=== PATIENT | male | born 1960 | race Caucasian/White ===

== ENCOUNTER 2019-04-28 15:02 | Inpatient (IN) ==
[2019-04-28] MEDS ORDERED: ONDANSETRON INJ 2 MG/ML 2 ML VIAL IV STA (15:22)
[2019-04-28] MEDS ORDERED: SODIUM CHLORIDE 0.9% 500 ML IV ONE (15:22)
--- NOTE | 2019-04-28 15:42 | Emergency Department Note ---
Entered by Roz Mcclendon acting as a scribe for Cornelio Jose DO History of Present Illness General Chief complaint: Leg Injury/Pain Stated complaint: SEVERE PAIN FROM HIP DOWN, LEG PROBLEM Time Seen by Provider: 04/28/19 15:12 Source: patient History of Present Illness Onset (ago): day(s) 2 Location: lower extremity and left Pain Consistency: + other (worsening ) Maximum Pain Intensity: 10 Exacerbated By: + movement Associated symptoms: + other (positive left leg swelling; positive left leg redness); no fever/chills The patient is a 58 year old male who presents to the Emergency Room with complaints of worsening left leg pain that began 2 days prior to arrival. The patient reports that he has redness and swelling over this area. The patient states that his pain is exacerbated with movement. He reports chills several days ago, but denies fevers. The patient states that on 03/21, 38 days ago, the patient had a bypass which removed an artery from his wrist and placed in his left groin. The patient states that he is on Plavix currently. 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 The patient reports that he is a smoker, but denies drinking alcohol. Home Medications Home Medications Medication Instructions Recorded Confirmed Type clopidogrel 75 mg PO DAILY 04/28/19 04/28/19 History insulin aspart U-100 [Novolog 10 unit SUBCUT TIDM 04/28/19 04/28/19 History Flexpen U-100 Insulin] insulin glargine [Lantus Solostar 45 unit SUBCUT BID 04/28/19 04/28/19 History U-100 Insulin] lisinopril 0 mg PO DAILY 04/28/19 04/28/19 History metformin 0 mg PO BID 04/28/19 04/28/19 History omeprazole 0 mg PO DAILY 04/28/19 04/28/19 History Allergies Allergy/AdvReac Type Severity Reaction Status Date / Time gabapentin Allergy Unknown Unverified 04/28/19 16:55 tramadol Allergy Unknown Unverified 04/28/19 16:55 Past Med/Surg History Medical History Diabetes GERD (gastroesophageal reflux disease) Hypertension Peripheral vascular disease Social History Preferred Language: [place] Citizen Communication Ability: Effective Box Liner Required: No Beliefs That Will Affect Care: None Current Living Situation: Alone Feels Safe at Home: Yes Safety Concerns: Feels Safe At This Time Smoking Status: Current every day smoker Tobacco Type: cigarettes ; Cigarettes Per Day: 5-10 ; Hx Alcohol Use: No Hx Substance Use: No Review of Systems See HPI for pertinent positives & negatives. and A total of 10 systems reviewed and were otherwise negative Physical Exam Vital Signs Vital Signs - 24 hr 04/28/19 15:06 04/28/19 17:53 04/28/19 17:54 Temperature 36.9 C Temperature Source Oral Pulse Rate 115 H 102 H 103 H Pulse Rate from SpO2 Sensor Respiratory Rate 18 26 H 14 Respiratory Effort / Characteristics Non-Labored Spontaneous Respiratory Depth Normal Respiratory Pattern Regular Blood Pressure 130/84 133/92 Blood Pressure Mean 99 98 Blood Pressure Position Sitting Pulse Oximetry 98 Oxygen Delivery Method Room Air Sepsis Recent Fever Within 48 Hours No Sepsis New/Unexplained Change in Mental Status No Sepsis Action Taken by Nursing No Action Required 04/28/19 18:00 04/28/19 18:01 04/28/19 18:10 Temperature Temperature Source Pulse Rate 104 H 106 H 103 H Pulse Rate from SpO2 Sensor 104 H 106 H 103 H Respiratory Rate 12 26 H 22 Respiratory Effort / Characteristics Respiratory Depth Respiratory Pattern Blood Pressure 128/87 Blood Pressure Mean 100 Blood Pressure Position Pulse Oximetry 98 96 93 Oxygen Delivery Method Sepsis Recent Fever Within 48 Hours Sepsis New/Unexplained Change in Mental Status Sepsis Action Taken by Nursing 04/28/19 18:20 04/28/19 18:30 04/28/19 18:31 Temperature Temperature Source Pulse Rate 104 H 104 H 102 H Pulse Rate from SpO2 Sensor 104 H 105 H 101 H Respiratory Rate 21 18 19 Respiratory Effort / Characteristics Respiratory Depth Respiratory Pattern Blood Pressure 141/99 H Blood Pressure Mean 119 Blood Pressure Position Pulse Oximetry 97 96 96 Oxygen Delivery Method Sepsis Recent Fever Within 48 Hours Sepsis New/Unexplained Change in Mental Status Sepsis Action Taken by Nursing 04/28/19 18:40 Temperature Temperature Source Pulse Rate 101 H Pulse Rate from SpO2 Sensor 101 H Respiratory Rate 18 Respiratory Effort / Characteristics Respiratory Depth Respiratory Pattern Blood Pressure Blood Pressure Mean Blood Pressure Position Pulse Oximetry 96 Oxygen Delivery Method Sepsis Recent Fever Within 48 Hours Sepsis New/Unexplained Change in Mental Status Sepsis Action Taken by Nursing GENERAL: The patient is awake and alert. He is somewhat anxious appearing and appears to be in significant pain. EYES: The conjunctivae are clear. The pupils are round and reactive. EARS, NOSE, MOUTH AND THROAT: The nose is without any evidence of any deformity. Mucous membranes are moist. Tongue is midline. NECK: The neck is nontender and supple. RESPIRATORY: Normal respiratory effort is noted there is no evidence of wheezing rhonchi or rales CARDIOVASCULAR: Regular rate and rhythm noted there no murmurs rubs or gallops normal S1 normal S2. GASTROINTESTINAL: The abdomen is soft. Abdomen is nontender. MUSCULOSKELETAL/EXTREMITIES: There is no evidence of gross deformity full range of motion is noted in the hips and shoulders. SKIN: The postoperative sites on the left lower extremity are well-healing. There is no dehiscence erythema or drainage noted. Pulses are palpable in both feet. There is significant erythema in the left thigh. There is induration and tenderness over the left lateral thigh. NEUROLOGIC: Patient is awake alert and oriented x3. Course Course 1519: Past medical records reviewed. The patient was evaluated in room B7. A complete history and physical exam was performed. 1807: I discussed the case with Dr. [facility] Hospitalist who accepts the patient for further evaluation. Administered Medications Clopidogrel Bisulfate (Plavix) 75 mg PO DAILY [facility] Stop: 05/29/19 08:59 Last Admin: 04/29/19 08:08 Dose: 75 mg Documented by: [id number] Piperacillin Sod/Tazobactam (Sod 3.375 gm/ Dextrose) 115 mls @ 28.75 mls/hr IV Q8H RAUL; Protocol Stop: 05/05/19 01:59 Last Admin: 04/29/19 09:18 Dose: 28.8 mls/hr Documented by: [id number] Infusion: 04/29/19 06:10 Dose: 0 mls/hr Documented by: [id number] Admin: 04/29/19 02:02 Dose: 28.8 mls/hr Documented by: [id number] Insulin Aspart (Novolog Flexpen) 0 units SC ACHS RAUL Stop: 05/28/19 20:59 Last Admin: 04/29/19 08:02 Dose: 8 units Documented by: [id number] Cosigned by: [id number] Admin: 04/28/19 21:06 Dose: 9 units Documented by: [id number] Cosigned by: [id number] Insulin Glargine (Lantus Solostar Pen) 45 units SQ BID [facility] Stop: 05/28/19 20:59 Last Admin: 04/29/19 08:00 Dose: 45 units Documented by: [id number] Cosigned by: [id number] Admin: 04/28/19 21:04 Dose: 45 units Documented by: [id number] Cosigned by: [id number] Ioversol (Optiray 320 100ml) 93 ml IV ONCE PRN PRN Reason: Interaction Checking Stop: 05/02/19 19:30 Last Admin: 04/28/19 19:32 Dose: 93 ml Documented by: [id number] Lisinopril (Zestril) 2.5 mg PO DAILY [facility] Stop: 05/29/19 08:59 Last Admin: 04/29/19 08:09 Dose: 2.5 mg Documented by: [id number] Miscellaneous (Remove Nicoderm Patch) 1 ea N/A DAILY@0859 [facility] Stop: 05/29/19 08:58 Last Admin: 04/29/19 08:07 Dose: Not Given Documented by: [id number] Nicotine (Nicoderm Cq) 14 mg TD QAM [facility] Stop: 05/28/19 19:14 Last Admin: 04/29/19 08:30 Dose: Not Given Documented by: [id number] Admin: 04/28/19 21:04 Dose: 14 mg Documented by: [id number] Oxycodone/Acetaminophen (Percocet 10/325mg) 1 tab PO Q6H PRN PRN Reason: Pain Stop: 05/12/19 20:08 Last Admin: 04/29/19 09:17 Dose: 1 tab Documented by: [id number] Admin: 04/29/19 03:16 Dose: 1 tab Documented by: [id number] Admin: 04/28/19 21:03 Dose: 1 tab Documented by: [id number] Pantoprazole Sodium (Protonix) 40 mg PO DAILY [facility] Stop: 05/29/19 08:59 Last Admin: 04/29/19 08:09 Dose: 40 mg Documented by: [id number] Discontinued Medications Fentanyl Citrate (Fentanyl Citrate) 50 mcg IV Q15M PRN PRN Reason: Pain Stop: 05/12/19 15:21 Last Admin: 04/28/19 18:07 Dose: 50 mcg Documented by: [id number] Admin: 04/28/19 16:13 Dose: 50 mcg Documented by: [id number] Sodium Chloride (Nss) 500 mls @ 999 mls/hr IV .Q31M ONE Stop: 04/28/19 15:52 Last Infusion: 04/28/19 16:49 Dose: 0 mls/hr Documented by: [id number] Admin: 04/28/19 16:13 Dose: 999 mls/hr Documented by: [id number] Ceftriaxone Sodium (Rocephin) 1,000 mg in 50 mls @ 100 mls/hr IV NOW STA Stop: 04/28/19 18:07 Last Infusion: 04/28/19 19:08 Dose: 0 mls/hr Documented by: [id number] Admin: 04/28/19 18:05 Dose: 100 mls/hr Documented by: [id number] Sodium Chloride (Nss 1000ml) 1,000 mls @ 999 mls/hr IV .Q1H1M ONE Stop: 04/28/19 18:38 Last Infusion: 04/28/19 20:15 Dose: 0 mls/hr Documented by: [id number] Admin: 04/28/19 19:08 Dose: 999 mls/hr Documented by: [id number] Piperacillin Sod/Tazobactam (Sod 3.375 gm/ Dextrose) 115 mls @ 28.75 mls/hr IV Q8H [facility]; Protocol Stop: 05/05/19 19:14 Last Admin: 04/28/19 20:42 Dose: Not Given Documented by: [id number] Sodium Chloride (Nss 1000ml) 1,000 mls @ 125 mls/hr IV .Q8H RAUL Stop: 04/29/19 08:08 Last Admin: 04/29/19 04:39 Dose: 125 mls/hr Documented by: [id number] Infusion: 04/29/19 04:39 Dose: 125 mls/hr Documented by: [id number] Admin: 04/28/19 21:04 Dose: 125 mls/hr Documented by: [id number] Piperacillin Sod/Tazobactam (Sod 3.375 gm/ Dextrose) 115 mls @ 230 mls/hr IV NOW STA; Protocol Stop: 04/28/19 21:04 Last Infusion: 04/28/19 21:42 Dose: 0 mls/hr Documented by: [id number] Admin: 04/28/19 21:04 Dose: 230 mls/hr Documented by: [id number] Ondansetron HCl (Zofran) 4 mg IV NOW STA Stop: 04/28/19 15:23 Last Admin: 04/28/19 16:13 Dose: 4 mg Documented by: [id number] Medical Decision Making Differential Diagnosis Differential diagnosis includes etiologies such as cellulitis, abscess, MRSA infection, DVT, necrotizing fasciitis, dermatitis, drug eruption, as well as others were entertained. Medical Records Attestation: I reviewed the patient's medical records. Home Medications Current Medication List: was personally reviewed by me Laboratory Data Attestation: I reviewed the patient's lab results. Result diagrams: 04/29/19 06:04 04/29/19 06:04 Lab Results 04/28/19 04/28/19 04/28/19 Range/Units 15:41 15:41 15:41 WBC 6.80 (4.8-10.8) K/uL RBC 4.70 (4.7-6.1) M/uL Hgb 11.6 L (14.0-18.0) g/dL Hct 36.2 L (42-52) % MCV 77.0 L (80-100) fL MCH 24.7 L (25-34) pg MCHC 32.0 (32-36) g/dL RDW Std Deviation 56.1 H (36.4-46.3) fL RDW Coeff of Jag 19.9 H (11.5-14.5) % Plt Count 251 (130-400) K/uL MPV 9.9 (7.4-10.4) fL Immature Gran % (Auto) 0.3 % Neut % (Auto) 73.5 % Lymph % (Auto) 18.2 % Boyle % (Auto) 7.9 % Eos % (Auto) 0.0 % Baso % (Auto) 0.1 % Immature Gran # (Auto) 0.02 (0.00-0.02) K/uL Neut # (Auto) 4.99 (1.4-6.5) K/uL Lymph # (Auto) 1.24 (1.2-3.4) K/uL Boyle # (Auto) 0.54 (0.11-0.59) K/uL Eos # (Auto) 0.00 (0-0.5) K/uL Baso # (Auto) 0.01 (0-0.2) K/uL ESR > 90 H (0-14) mm/hr PT 10.6 (9.0-12.0) Seconds INR 1.0 (0.9-1.1) APTT 26.8 (21.0-31.0) Seconds PTT Ratio 1.0 Sodium (136-145) mmol/L Potassium (3.5-5.1) mmol/L Chloride (98-107) mmol/L Carbon Dioxide (21-32) mmol/L Anion Gap (3-11) BUN (7-18) mg/dl Creatinine (0.6-1.4) mg/dl Est Cr Clr Drug Dosing ml/min Est GFR ( Amer) Est GFR (Non-Af Amer) BUN/Creatinine Ratio (10-20) Glucose (70-99) mg/dl Calcium (8.5-10.1) mg/dl Total Bilirubin (0.2-1) mg/dl AST (15-37) U/L ALT (12-78) U/L Alkaline Phosphatase (45-117) U/L Total Creatine Kinase (39-308) U/L Troponin I (0-0.045) ng/ml C-Reactive Protein (0-0.29) mg/dl Total Protein (6.4-8.2) gm/dl Albumin (3.4-5.0) gm/dl Globulin (2.5-4.0) gm/dl Albumin/Globulin Ratio (0.9-2) Procalcitonin (0-0.5) ng/ml 04/28/19 04/28/19 Range/Units 15:41 15:41 WBC (4.8-10.8) K/uL RBC (4.7-6.1) M/uL Hgb (14.0-18.0) g/dL Hct (42-52) % MCV (80-100) fL MCH (25-34) pg MCHC (32-36) g/dL RDW Std Deviation (36.4-46.3) fL RDW Coeff of Jag (11.5-14.5) % Plt Count (130-400) K/uL MPV (7.4-10.4) fL Immature Gran % (Auto) % Neut % (Auto) % Lymph % (Auto) % Boyle % (Auto) % Eos % (Auto) % Baso % (Auto) % Immature Gran # (Auto) (0.00-0.02) K/uL Neut # (Auto) (1.4-6.5) K/uL Lymph # (Auto) (1.2-3.4) K/uL Boyle # (Auto) (0.11-0.59) K/uL Eos # (Auto) (0-0.5) K/uL Baso # (Auto) (0-0.2) K/uL ESR (0-14) mm/hr PT (9.0-12.0) Seconds INR (0.9-1.1) APTT (21.0-31.0) Seconds PTT Ratio Sodium 133 L (136-145) mmol/L Potassium 3.9 (3.5-5.1) mmol/L Chloride 101 (98-107) mmol/L Carbon Dioxide 26 (21-32) mmol/L Anion Gap 6.0 (3-11) BUN 13 (7-18) mg/dl Creatinine 1.29 (0.6-1.4) mg/dl Est Cr Clr Drug Dosing 67.3 ml/min Est GFR ( Amer) 70.9 Est GFR (Non-Af Amer) 61.1 BUN/Creatinine Ratio 10.3 (10-20) Glucose 227 H (70-99) mg/dl Calcium 9.0 (8.5-10.1) mg/dl Total Bilirubin 0.5 (0.2-1) mg/dl AST 12 L (15-37) U/L ALT 20 (12-78) U/L Alkaline Phosphatase 153 H (45-117) U/L Total Creatine Kinase 70 (39-308) U/L Troponin I < 0.015 (0-0.045) ng/ml C-Reactive Protein 13.70 H (0-0.29) mg/dl Total Protein 8.0 (6.4-8.2) gm/dl Albumin 3.2 L (3.4-5.0) gm/dl Globulin 4.8 H (2.5-4.0) gm/dl Albumin/Globulin Ratio 0.7 L (0.9-2) Procalcitonin 0.30 (0-0.5) ng/ml Imaging Data Radiologist's Impression: Radiology results as stated below per my review and the radiologist's interpretation: US venous doppler LE LT HISTORY: 58 years-old Male recent surgery acute pain and swelling of the left lower extremity COMPARISON: None TECHNIQUE: Multiple real-time sonographic images of the left lower extremity deep venous structures were obtained assessing grayscale appearance, color and spectral flow FINDINGS: Normal flow, compressibility, phasicity and augmentation of the left lower extremity deep venous structures. Mild subcutaneous edema of the lower leg. Nonspecific prominent and mildly enlarged left inguinal lymph nodes with normal morphologic features are likely reactive. IMPRESSION: No sonographic evidence of deep venous thrombosis. ACT 112: Negative or not required by law. The above report was generated using voice recognition software. It may contain grammatical, syntax or spelling errors. Electronically signed by: Toni Ac M.D. 04/28/2019 6:02 PM US arterial duplex LE LT HISTORY: 58 years-old Male pain acute pain of the left lower extremity COMPARISON: Duplex venous Doppler study of same day TECHNIQUE: Segmental blood pressures were obtained in addition to multiple real- time sonographic images of the left lower extremity arterial structures assessing grayscale appearance, color and spectral flow FINDINGS: Segmental pressures: Right: Brachial of 127. Posterior tibial and dorsalis pedis pressures were not obtained. Left: Posterior tibial of 124 (0.98); dorsalis pedis of 92 (0.72) Patent common femoral artery with biphasic waveforms and extensive mixed plaque. Triphasic waveforms are noted within the patent profunda femoris artery. 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 There is a patent arterial graft which appears to extend from the profunda femoris to the anterior tibial artery. Peak systolic velocity of the proximal anastomosis measures 152 cm/s and at the distal anastomosis measures 181 cm/s demonstrating triphasic waveforms. Heterogeneity and edema is noted within the soft tissues surrounding the distal anastomosis. Triphasic waveforms are noted within the posterior tibial artery distal to the anastomosis. Biphasic and triphasic waveforms are noted within the peroneal artery with biphasic and triphasic waveforms within the dorsalis pedis and an terior tibial arteries. IMPRESSION: 1. 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 2. Nonspecific edema of the calf within the region of the distal anastomosis. ACT 112: Negative or not required by law. The above report was generated using voice recognition software. It may contain grammatical, syntax or spelling errors. Electronically signed by: Toni Ac M.D. 04/28/2019 6:56 PM ECG Data Attestation: I personally reviewed and interpreted this ECG as follows: Indication: + tachycardia Rate (beats per minute): 109 Rhythm: + sinus tachycardia ECG ST segments: no ST depression and no ST elevation ECG Findings: no PACs and no PVCs Comparison ECG Date: no prior available Blood Pressure Blood Pressure Findings: Elevated blood pressure Blood Pressure Disposition: elevated BP felt to be situational MDM Narrative The patient is a 58-year-old male who presented to the emergency department for an evaluation of left lower extremity pain and redness. The patient recently had arterial surgery with bypass grafting of his left lower extremity. This was done at the [facility]. The patient presents today with ongoing pain redness and swelling. The patient had palpable pulses in both feet. His initial history and physical exam appear to be consistent with cellulitis. He was treated with IV antibiotics in the emergency department. I discussed the patient's laboratory and radiographic studies with him. He was treated with IV pain medication in the emergency department. On subsequent reevaluation he was somewhat improved. The patient's ultrasound does not appear to be consistent with arterial occlusion or with DVT. I do feel his overall condition is likely consistent with postoperative infection likely cellulitis on the lateral aspect of the thigh. I discussed his case with the [facility] hospitalist group. They will evaluate the patient in the emergency department for further management and disposition. Impression & Plan Post-operative pain, Postoperative wound cellulitis Discharge Plan Visit Data *Final* Discharge Date/Time: 04/28/19 19:20 Chief Complaint: Leg Injury/Pain Stated Complaint: SEVERE PAIN FROM HIP DOWN, LEG PROBLEM ED Provider: Cornelio Jose Discharge Problem: Post-operative pain, Postoperative wound cellulitis Patient Disposition: Admitted As Inpatient Discharge Instructions Interventions: ED Discharge Assessment Last Done: 04/28/19 19:20 The scribe's documentation has been prepared under my direction and personally reviewed by me in its entirety. I confirm that the note above accurately reflects all work, treatment, procedures, and medical decision making performed by me.
[2019-04-28 16:05] LABS: Basophils # (auto) 0.01 K/uL (0-0.2); Basophils % (auto) 0.1 %; Hematocrit (blood only) 36.2 % (42-52); Hemoglobin 11.6 g/dL (14.0-18.0); Immature Granulocytes # (auto) 0.02 K/uL (0.00-0.02); Immature Granulocytes % (auto) 0.3 %; Lymphocytes # (auto) 1.24 K/uL (1.2-3.4); Lymphocytes % (auto) 18.2 %; Mean Corpuscular Hemoglobin 24.7 pg (25-34); Mean Platelet Volume 9.9 fL (7.4-10.4); Monocytes # (auto) 0.54 K/uL (0.11-0.59); Monocytes % (auto) 7.9 %; Neutrophils # (auto) 4.99 K/uL (1.4-6.5); Neutrophils % (auto) 73.5 %; Platelet Count 251 K/uL (130-400); RDW Coefficient of Variation 19.9 % (11.5-14.5); RDW Standard Deviation 56.1 fL (36.4-46.3)
[2019-04-28] MEDS: fentaNYL citrate 100 MCG/2 ML VIAL IV PRN ×2 (16:13→18:07)
[2019-04-28 16:16] LABS: Partial Thromboplastin Time 26.8 Seconds (21.0-31.0); Prothrombin Time 10.6 Seconds (9.0-12.0)
[2019-04-28 16:22] LABS: Alanine Aminotransferase 20 U/L (12-78); Albumin Level 3.2 gm/dl (3.4-5.0); Aspartate Aminotransferase 12 U/L (15-37); BUN Creatinine Ratio 10.3 (10-20); Blood Urea Nitrogen 13 mg/dl (7-18); Carbon Dioxide 26 mmol/L (21-32); Chloride 101 mmol/L (98-107); Creatinine Clr Calc Pharmacy 67.3 ml/min; Est GFR (African American) 70.9; Est GFR (Non-African American) 61.1; Glucose 227 mg/dl (70-99); Potassium 3.9 mmol/L (3.5-5.1); Sodium 133 mmol/L (136-145)
[2019-04-28 16:27] LABS: Albumin Globulin Ratio 0.7 (0.9-2); Alkaline Phosphatase 153 U/L (45-117); Bilirubin,Total 0.5 mg/dl (0.2-1); Creatine Kinase 70 U/L (39-308); Globulin 4.8 gm/dl (2.5-4.0); Troponin I < 0.015 ng/ml (0-0.045)
[2019-04-28] MEDS ORDERED: SODIUM CHLORIDE 0.9% 1000ML 1,000 ML IV ONE (17:38)
[2019-04-28] MEDS ORDERED: cefTRIAXone SODIUM 1,000 MG/50 ML BAG IV STA (17:38)
--- NOTE | 2019-04-28 18:03 | Ultrasound Report ---
US venous doppler LE LT HISTORY: 58 years-old Male recent surgery acute pain and swelling of the left lower extremity COMPARISON: None TECHNIQUE: Multiple real-time sonographic images of the left lower extremity deep venous structures w ere obtained assessing grayscale appearance, color and spectral flow FINDINGS: Normal flow, compressibility, phasicity and augmentation of the left lower extremity deep venous stru ctures. Mild subcutaneous edema of the lower leg. Nonspecific prominent and mildly enlarged left ingu inal lymph nodes with normal morphologic features are likely reactive. IMPRESSION: No sonographic evidence of deep venous thrombosis. ACT 112: Negative or not required by law. The above report was generated using voice recognition software. It may contain grammatical, syntax o r spelling errors. Electronically signed by: Toni Ac M.D. 04/28/2019 6:02 PM
--- NOTE | 2019-04-28 18:17 | History & Physical Report ---
Date of Service April 28, 2019 Assessment & Plan (1) Postoperative wound cellulitis: - Admit to [facility] - Involving almost the entire upper left thigh, spreading proximally past the inguinal ligament. Likely source of the infection is coming from left lower extremity healing wound s/p most recent bypass graft surgery which occurred on 03/21/2019 at [facility]. -Erythematous area has been outlined with a skin marker and dated by myself - Checking lactic acid - Checking CT of the femur for any possible abscess, does not appear to be any superficial abscess - IV Rocephin, first dose administered in the ER, continue with zosyn IV - Check MRSA swab - Pain management with Percocet 10/325 mg, tylenol prn - PT/OT (2) Peripheral vascular disease: - He reports that [facility] [place] [facility] including all previous grafting procedures. -Continue Plavix 75 mg daily (3) Post-operative pain: - He has a pain clinic appointment scheduled for Tuesday at 8 AM which he cannot miss or he will not be allowed to resume pain medication. Has appointment in [place]. Has been waiting multiple months to see the provider. If misses then he will be forced to start over for an opening. - Plan to discharge the patient tomorrow pending improvement of cellulitis with IV antibiotics, transition to oral antibiotics. (4) DM type 2 (diabetes mellitus, type 2): - Check A1C with am labs - ISS with Accu-Cheks AC at bedtime, will continue with Lantus 45 units in the morning and at bedtime, - hold metformin, hold NovoLog 10 units AC -Heart healthy/diabetic diet -Continue IV Zosyn as above (5) Hypertension: -BP well controlled presently, continue lisinopril 2.5 mg daily (6) GERD (gastroesophageal reflux disease): -Continue omeprazole 10 mg every morning (7) Tobacco abuse: -Currently smokes one half PPD, this is down from 1 pack/day, has smoked since age 14 -Cessation encouraged -Nicotine patch ordered 14 mcg daily to start now (8) DVT prophylaxis: -Cesar on right lower extremity only, Plavix CODE STATUS: Full code Disposition: Patient from home, will need to be admitted tomorrow to make pain management appointment which occurs on Tuesday at 8 AM in [place]. History of Present Illness Primary Care Provider: NO PCP This is a 58 yo M with PMHx of significant PAD and multiple bypass grafting, most recently had left femoral bypass grafting done on 03/21/19 at [facility], DM II, current tobacco user of 1/2 ppd currently and has reduced this from 1 ppd, has b een a smoker since at 14, DM II, HTN, depression who presents with acute onset pain which began several days ago. He reports that he noticed redness developing over the left thigh yesterday, and his parents progressed to involve anterior thigh moving upwards past inguinal ligament and extending towards the abdomen. He cannot recall mechanism of injury to the left leg, however there is an area of healing in the medial aspect of the lower left leg s/p bypass grafting completed at the end of February which could pose as an entry point for infection. He denies any fevers, sweats or chills. He reports that his pain has been very significant. Patient admits to intermittent headache as well as nausea x2 days. He has had a very poor appetite due to pain. Patient notes he previously was taking Percocet 10/325 mg q6h prn chronic pain, however [facility]. He has a pain clinic appointment scheduled for Tuesday at 8 AM which he cannot miss or he will not be allowed to resume pain medication. He reports that all of his previous bypass grafting has been done in [place] by the [facility] or [facility]. Patient's friend, who is also a is at bedside and supports the history. Allergies Allergy/AdvReac Type Severity Reaction Status Date / Time gabapentin Allergy Unknown Unverified 04/28/19 16:55 tramadol Allergy Unknown Unverified 04/28/19 16:55 Home Medications Home Medications Medication Instructions Recorded Confirmed Type clopidogrel 75 mg PO DAILY 04/28/19 04/28/19 History insulin aspart U-100 [Novolog 10 unit SUBCUT TIDM 04/28/19 04/28/19 History Flexpen U-100 Insulin] insulin glargine [Lantus Solostar 45 unit SUBCUT BID 04/28/19 04/28/19 History U-100 Insulin] lisinopril 0 mg PO DAILY 04/28/19 04/28/19 History metformin 0 mg PO BID 04/28/19 04/28/19 History omeprazole 0 mg PO DAILY 04/28/19 04/28/19 History Past Med/Surg History Medical History Diabetes GERD (gastroesophageal reflux disease) Hypertension Peripheral vascular disease Social History Preferred Language: [place] Communication Ability: Effective 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 Beliefs That Will Affect Care: None Current Living Situation: Alone Feels Safe at Home: Yes Safety Concerns: Feels Safe At This Time Smoking Status: Current every day smoker Tobacco Type: cigarettes ; Cigarettes Per Day: 5-10 ; Hx Alcohol Use: No Hx Substance Use: No Review of Systems Review of Systems: Constitutional: No fever, sweats or chills Eyes: No diplopia, no worsening or blurred vision ENT: normal hearing, no trouble swallowing Respiratory: No cough, sputum, dyspnea at rest or on exertion Cardiovascular: No chest pain, tightness or palpitations Abdomen: No pain, +nausea, no vomiting, diarrhea or constipation Musculoskeletal: + left thigh pain over red area, No specific joint pain, calf pain, swelling Neurologic: No weakness, no numbness/tingling, or balance problems Psychiatric: No anxiety or depression Skin: No rash or itch Physical Exam Physical Exam: General: awake, alert, no apparent distress, + smells of smoke Head: Normocephalic, atraumatic ENT: PERRL, EOMI, no pharyngeal exudate, mucous membranes moist Chest: Clear to auscultation, on room air, no adventitious breath sounds Cardiac: Sinus tach with HR in the low 100s, no murmur, no JVD, normal peripheral pulses, good capillary refill Abdominal: NABS x 4 quadrants, nondistended, soft, nontender to palpation, no rebound, guarding or tenderness Extremities: + Multiple scars overlying BLE and BUE from previous grafting sites, 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 + Dolor. Otherwise normal inspection, no peripheral edema or erythema of other extremities, calfs nontender to palpation, 1+ pulses intact throughout including radial, posterior tibial and dorsalis pedis. Psych: Normal mood and affect Neuro: AAO x 3, strength intact bilaterally and rated 5/5, no gross motor deficits, speech is clear, no peripheral sensory deficits Results & Data Vital Signs (Past 12 Hours) Vital Signs Temp Pulse Resp BP Pulse Ox 04/28/19 18:01 106 H 26 H 96 04/28/19 18:00 104 H 12 128/87 98 04/28/19 17:54 103 H 14 133/92 04/28/19 17:53 102 H 26 H 04/28/19 15:06 36.9 C 115 H 18 130/84 98 Diagnostic Findings US venous doppler LE LT HISTORY: 58 years-old Male recent surgery acute pain and swelling of the left lower extremity COMPARISON: None TECHNIQUE: Multiple real-time sonographic images of the left lower extremity deep venous structures were obtained assessing grayscale appearance, color and spectral flow FINDINGS: Normal flow, compressibility, phasicity and augmentation of the left lower extremity deep venous structures. Mild subcutaneous edema of the lower leg. Nonspecific prominent and mildly enlarged left inguinal lymph nodes with normal morphologic features are likely reactive. IMPRESSION: No sonographic evidence of deep venous thrombosis. ACT 112: Negative or not required by law. The above report was generated using voice recognition software. It may contain grammatical, syntax or spelling errors. Electronically signed by: Toni Ac M.D. 04/28/2019 6:02 PM Dictated: 04/28/191800 Transcribed: 04/28/191800 ECG Additional Comments: 28-APR-2019 15:37:55 [facility]-EDSTAT ROUTINE RETRIEVAL Sinus tachycardia Otherwise normal ECG No previous ECGs available 25mm/s 10mm/mV 150Hz 9.0.9 12SL 241 HORACIO: 13 Referred by: REFERRED SELF Unconfirmed Vent. rate 109 BPM ME interval 156 ms QRS duration 88 ms QT/QTc 318/428 ms P-R-T axes 42 40 47 Code Status & VTE Plan Code Status Full code -discussed with the patient at bedside Supervising Physician Co-Signing Physician Notes I have seen and examined patient with Tish Dan PA-C and agree with the assessment and plan. PG Care Time/CCT Total # of Minutes Spent Total Time Spent with Patient: Total time spent is greater than 50% in coordination of care (as documented) at patient's floor/unit and/or counseling patient: Coding Level of Care Code 21644 Initial Inpt Care Lvl 3 Diagnoses Postoperative wound cellulitis T81.49XA Peripheral vascular disease I73.9 Post-operative pain G89.18 DM type 2 (diabetes mellitus, type 2) E11.9 Hypertension I10 GERD (gastroesophageal reflux disease) K21.9 Tobacco abuse Z72.0 DVT prophylaxis Z29.9
--- NOTE | 2019-04-28 18:57 | Ultrasound Report ---
US arterial duplex LE LT HISTORY: 58 years-old Male pain acute pain of the left lower extremity COMPARISON: Duplex venous Doppler study of same day TECHNIQUE: Segmental blood pressures were obtained in addition to multiple real-time sonographic imag es of the left lower extremity arterial structures assessing grayscale appearance, color and spectral flow FINDINGS: Segmental pressures: Right: Brachial of 127. Posterior tibial and dorsalis pedis pressures were not obtained. Left: Posterior tibial of 124 (0.98); dorsalis pedis of 92 (0.72) Patent common femoral artery with biphasic waveforms and extensive mixed plaque. Triphasic waveforms are noted within the patent profunda femoris artery. Likely chronic occlusion of the [place] superfici al femoral artery extending from the mid to distal portion and popliteal artery. There is a patent ar terial graft which appears to extend from the profunda femoris to the anterior tibial artery. Peak sy stolic velocity of the proximal anastomosis measures 152 cm/s and at the distal anastomosis measures 181 cm/s demonstrating triphasic waveforms. Heterogeneity and edema is noted within the soft tissues surrounding the distal anastomosis. Triphasic waveforms are noted within the posterior tibial artery distal to the anastomosis. Biphasic and triphasic waveforms are noted within the peroneal artery with biphasic and triphasic waveforms wi thin the dorsalis pedis and anterior tibial arteries. IMPRESSION: 1. Occlusion of the superficial femoral and popliteal arteries with patent lower extremity arterial g raft. 2. Nonspecific edema of the calf within the region of the distal anastomosis. ACT 112: Negative or not required by law. The above report was generated using voice recognition software. It may contain grammatical, syntax o r spelling errors. Electronically signed by: Toni Ac M.D. 04/28/2019 6:56 PM
[2019-04-28] MEDS ORDERED: PIPERACILL/TAZOBAC CONSULT ACTIVE PRN (19:12)
[2019-04-28] MEDS ORDERED: PIPERACILLIN/TAZOBACTAM 3.375 GM in DEXTROSE 5% 100 ML IV SCH (19:15)
[2019-04-28] MEDS ORDERED: IOVERSOL 100ml IV PRN (19:31)
[2019-04-28] MEDS ORDERED: GLUCOSE 40% GEL 15 GM TUBE PO PRN (20:09)
[2019-04-28] MEDS ORDERED: GLUCAGON FOR INJ 1 MG VIAL SQ PRN (20:09)
[2019-04-28] MEDS ORDERED: CARBOHYDRATES FOR HYPOGLYCEMIA PO PRN (20:09)
[2019-04-28] MEDS ORDERED: DEXTROSE 50% 50 ML SYRINGE IV PRN (20:09)
[2019-04-28] MEDS ORDERED: ONDANSETRON INJ 2 MG/ML 2 ML VIAL IV PRN (20:09)
[2019-04-28] MEDS ORDERED: ACETAMINOPHEN 325 MG TAB PO PRN (20:09)
[2019-04-28] MEDS ORDERED: GLUCOSE 10 TABS/TUBE PO PRN (20:09)
--- NOTE | 2019-04-28 20:09 | CT Scan Report ---
CT femur LT w con HISTORY: 58 years-old Male cellulitis, knee larry and thigh acute pain and swelling of the left thigh COMPARISON: Duplex venous Doppler and arterial studies of the left lower extremity of same day TECHNIQUE: Multiple axial CT images of the left femur were obtained following the intravenous ministr ation of 93 mL Optiray 320 IV contrast. A dose lowering technique was used consistent with the princi pals of CECY. FINDINGS: Moderate urinary bladder distention with prostamegaly. The imaged intrapelvic structures are otherwis e unremarkable. Prominent left inguinal chain lymph nodes measure up to 9 mm in short axis. There is moderate subcutaneous edema of the anterior thigh areas of mild skin thickening. There is a small kne e joint effusion. Vascular structures are suboptimally visualized secondary to timing of the study wh ich was not ordered as an angiogram. Severe mixed plaque of the proximal aspect left superficial femo ral artery. There is occlusion of the [place] superficial femoral and upper arteries with occluded sup erficial femoral artery arterial stent graft. There is a patent long segment arterial graft of the th igh. Mild edema surrounds the distal anastomosis. Partially imaged peripherally enhancing fluid colle ction of the medial tissues of the upper calf on image 531 series 3 measures 0.9 x 0.9 cm adjacent to the distal anastomosis. No intramuscular or drainable fluid collection identified. No acute fracture or dislocation. Moderate left hip osteoarthritis. Indeterminate scattered sclerotic foci, probably punctate involving the medullary space of the mid and distal femur with largest scler otic focus measuring 10 mm. Tiny lucent foci of the cortex of the mid to distal femur also noted. Dem ineralized appearance of the bones. IMPRESSION: 1. Long segment arterial stent occlusion of the superficial femoral and popliteal arteries with paten t arterial graft of the left thigh. 2. Moderate subcutaneous edema with areas of mild skin thickening are noted throughout the thigh sugg estive of cellulitis. Partially imaged subcentimeter fluid collection of the medial upper calf adjace nt to the distal anastomotic site. Seroma, abscess or hematoma are differential considerations. 3. No acute fracture or dislocation. 4. Mildly prominent inguinal chain lymph nodes, likely reactive. 5. Indeterminate scattered punctate sclerotic foci of the medullary space of the mid to distal femora l diaphysis may reflect bone islands however sclerotic metastasis could have a similar appearance. Co rrelate with prior imaging. ACT 112: Negative or not required by law. The above report was generated using voice recognition software. It may contain grammatical, syntax o r spelling errors. Electronically signed by: Toni Ac M.D. 04/28/2019 8:08 PM
[2019-04-28] MEDS ORDERED: PIPERACILLIN/TAZOBACTAM 3.375 GM in DEXTROSE 5% 100 ML IV STA (20:35)
[2019-04-28] MEDS: OXYCODONE/ACETAMINOPHEN 10-325 TAB PO PRN (21:03)
[2019-04-28] MEDS: INSULIN GLARGINE SOLOSTAR 100 UNITS/ML 3 ML PEN SQ SCH (21:04)
[2019-04-28] MEDS: NICOTINE 14 MG/24 HR PATCH TD SCH (21:04)
[2019-04-28] MEDS: SODIUM CHLORIDE 0.9% 1000ML 1,000 ML IV SCH (21:04)
[2019-04-28] MEDS: INSULIN ASPART 100 UNITS/ML 3 ML PEN SC SCH (21:06)
[2019-04-29] MEDS ORDERED: DOXYCYCLINE HYCLATE 100 MG CAP PO SCH
[2019-04-29] MEDS ORDERED: AMOXICILLIN/CLAVULANATE 875 MG TAB PO SCH
[2019-04-29] MEDS: PIPERACILLIN/TAZOBACTAM 3.375 GM in DEXTROSE 5% 100 ML IV SCH ×3 (02:02→20:08)
[2019-04-29] MEDS: OXYCODONE/ACETAMINOPHEN 10-325 TAB PO PRN ×4 (03:16→21:48)
[2019-04-29] MEDS: SODIUM CHLORIDE 0.9% 1000ML 1,000 ML IV SCH (04:39)
[2019-04-29 06:22] LABS: Basophils # (auto) 0.01 K/uL (0-0.2); Basophils % (auto) 0.2 %; Eosinophils # (auto) 0.12 K/uL (0-0.5); Eosinophils % (auto) 2.3 %; Hematocrit (blood only) 32.9 % (42-52); Hemoglobin 10.3 g/dL (14.0-18.0); Lymphocytes # (auto) 1.47 K/uL (1.2-3.4); Lymphocytes % (auto) 27.6 %; Mean Corpuscular Hgb Conc 31.3 g/dL (32-36); Mean Corpuscular Volume 76.5 fL (80-100); Mean Platelet Volume 10.2 fL (7.4-10.4); Monocytes # (auto) 0.64 K/uL (0.11-0.59); Neutrophils # (auto) 3.09 K/uL (1.4-6.5); Neutrophils % (auto) 57.9 %; Platelet Count 223 K/uL (130-400); White Blood Count 5.33 K/uL (4.8-10.8)
[2019-04-29 06:51] LABS: Anisocytosis Present; Hypochromasia Present
[2019-04-29 07:01] LABS: Albumin Globulin Ratio 0.7 (0.9-2); Albumin Level 2.7 gm/dl (3.4-5.0); BUN Creatinine Ratio 13.1 (10-20); Bilirubin,Total 0.6 mg/dl (0.2-1); Calcium 8.4 mg/dl (8.5-10.1); Creatinine Clr Calc Pharmacy 85.9 ml/min; Est GFR (African American) 95.3; Est GFR (Non-African American) 82.2; Globulin 3.8 gm/dl (2.5-4.0); Potassium 3.8 mmol/L (3.5-5.1); Total Protein 6.5 gm/dl (6.4-8.2)
[2019-04-29] MEDS: INSULIN GLARGINE SOLOSTAR 100 UNITS/ML 3 ML PEN SQ SCH ×2 (08:00→22:02)
[2019-04-29] MEDS ORDERED: INSULIN ASPART 100 UNITS/ML 3 ML PEN SQ SCH ×2 (08:00)
--- NOTE | 2019-04-29 08:01 | Hospitalist Progress Note ---
Date of Service April 29, 2019 Assessment & Plan (1) Postoperative wound cellulitis: - Involving almost the entire upper left thigh, spreading proximally past the inguinal ligament. Likely source of the infection is coming from left lower extremity healing wound s/p most recent bypass graft surgery which occurred on 03/21/[address] [facility]. - Erythematous area has been outlined with a skin marker - remains within border today and is dulled compared to last evening. Nontender to touch, minimal t enderness over the knee cap region, +less warmth compared to last evening. - Day 2 of abx - zosyn IV , add vancomycin - MRSA swab negative - Pain management with Percocet 10/325 mg, tylenol prn- pain management appt on Tuesday, will attempt to get the pt to this appt however above is concerning and may need transferred to OSH. - PT/OT - CT of the femur reviewed-- imaging reveals Long segment arterial stent occlusion of the superficial femoral and popliteal arteries with patent arterial graft of the left thigh. Moderate subcutaneous edema with areas of mild skin thickening are noted throughout the thigh suggestive of cellulitis. Partially imaged subcentimeter fluid collection of the medial upper calf adjacent to the distal anastomotic site. Seroma, abscess or hematoma are differential considerations. - with recent bypass grafting done it is concerning that this is an abscess, pt needs vascular consultation but it would be most appropriate for him to see his team at [facility]. - Pt has been accepted by [facility] in [place] for direct admission on 04/30/19 as I have personally spoken to accepting physician and have arranged. He will remain in our facility overnight for further antibiotics, then be dc'd no later than 6am to make his 8am appointment with Pain Management. He will then need to be driven to OSH, arriving there in the afternoon per their request. Pt is agreeable to this and expressed understanding. (2) Peripheral vascular disease: - He reports that [facility] [place] [facility] including all previous grafting procedures. - Continue Plavix 75 mg daily (3) Post-operative pain: - He has a pain clinic appointment scheduled for Tuesday at 8 AM which he cannot miss or he will not be allowed to resume pain medication. Has appointment in [place]. Has been waiting multiple months to see the provider. If misses then he will be forced to start over for an opening. - Plan to discharge the patient tomorrow morning (4) DM type 2 (diabetes mellitus, type 2): - Check A1C with am labs - ISS with Accu-Cheks AC at bedtime, will continue with Lantus 45 units in the morning and at bedtime, - hold metformin, hold NovoLog 10 units AC - Heart healthy/diabetic diet - Continue IV Zosyn and vanc as above (5) Hypertension: -BP well controlled presently, continue lisinopril 2.5 mg daily (6) GERD (gastroesophageal reflux disease): -Continue omeprazole 10 mg every morning (7) Tobacco abuse: -Currently smokes one half PPD, this is down from 1 pack/day, has smoked since age 14 -Cessation encouraged -Nicotine patch ordered 14 mcg daily (8) DVT prophylaxis: -Cesar on right lower extremity only, Plavix CODE STATUS: Full code Disposition: Patient from home, discharge tomorrow morning - will prep discharge today for night team. Pt accepted as an admission at [facility] under vascular for 04/30/19. Admission and Anticipated Discharge Date Admission Date: April 28, 2019 Supervising Physician Co-Signing Physician Notes Attending Attestation: Chart reviewed in detail, care plan d/w ANA Dan. I agree with the mejia components of her documentation. please see my attestation in the d/c summary with same date. Claudio Mendez MD Subjective The patient was seen and examined this morning. Pt states doing much better than yesterday, his pain is significantly improved, the redness is decreasing. He notes that he was able to get a good night sleep secondary to his better pain relief. He has been up and able to bear weight on the left leg which she had not been able to do for 2 days prior to admission. Patient denies any fevers, sweats or chills. He reports again that he would like to be able to make his pain management appointment if at all possible tomorrow morning. Discussion was held regarding CT of the femur showing possible abscess at the anastomotic site where his last bypass graft was done, and that would be best for him to proceed with treatment at the [facility] in [place] as this is where all his previous bypass grafting and vascular procedures have been done. He understands this, and reports that if he needs to be directly transferred he is agreeable to it. Review of Systems Review of Systems: Constitutional: No fever, sweats or chills Eyes: No diplopia, no worsening or blurred vision ENT: normal hearing, no trouble swallowing Respiratory: No cough, sputum, dyspnea at rest or on exertion Cardiovascular: No chest pain, tightness or palpitations Abdomen: No pain, nausea, vomiting, diarrhea or constipation Musculoskeletal: + Dulled redness, pain is less significant compared to yesterday, able to bear weight on the left leg, no joint pain, calf pain, swelling Neurologic: No weakness, numbness/tingling, or balance problems Psychiatric: No anxiety or depression Skin: No rash or itch Physical Exam Physical Exam: General: awake, alert, no apparent distress Head: Normocephalic, atraumatic ENT: PERRL, EOMI, no pharyngeal exudate, mucous membranes moist Chest: Clear to auscultation, on room air, no adventitious breath sounds Cardiac: Regular rate and rhythm, no murmur, no JVD, normal peripheral pulses, good capillary refill Abdominal: NABS x 4 quadrants, soft, nondistended, nontender to palpation, no rebound, guarding or tenderness Extremities: Left lower extremity with dulled erythema, less warmth compared to last evening, erythema is within the outlined border, minimal tenderness to palpation over the knee, nonpainful to touch otherwise, healing left medial posterior scar, no surrounding erythema of that region, no drainage. Multiple scars overlying upper and lower extremities from previous bypass grafting. Otherwise normal inspection, no peripheral edema or erythema, calfs nontender to palpation Psych: Normal mood and affect Neuro: AAO x 3, strength intact bilaterally and rated 5/5, no motor deficits, speech is clear, no peripheral sensory deficits Skin: no rash or erythema Results & Data ([facility]) Vital Signs (Past 12 Hours) Vital Signs Temp Pulse Pulse Resp BP Pulse Ox 04/29/19 07:35 79 04/29/19 07:00 36.8 C 79 18 123/78 94 04/29/19 03:05 36.8 C 84 16 124/75 97 04/28/19 23:50 108 H 04/28/19 23:01 37.1 C 68 18 127/80 98 04/28/19 20:[address] left leg done 04/28/19- reviewed as below: IMPRESSION: 1. Long segment arterial stent occlusion of the superficial femoral and popliteal arteries with patent arterial graft of the left thigh. 2. Moderate subcutaneous edema with areas of mild skin thickening are noted throughout the thigh suggestive of cellulitis. Partially imaged subcentimeter fluid collection of the medial upper calf adjacent to the distal anastomotic site. Seroma, abscess or hematoma are differential considerations. 3. No acute fracture or dislocation. 4. Mildly prominent inguinal chain lymph nodes, likely reactive. 5. Indeterminate scattered punctate sclerotic foci of the medullary space of the mid to distal femoral diaphysis may reflect bone islands however sclerotic metastasis could have a similar appearance. Correlate with prior imaging. PG Care Time/CCT Total # of Minutes Spent Total Time Spent with Patient: Total time spent is greater than 50% in coordination of care (as documented) at patient's floor/unit and/or counseling patient: Coding Level of Care Code 20564 Inpt Consult Level 3 Diagnoses Postoperative wound cellulitis T81.49XA Peripheral vascular disease I73.9 Post-operative pain G89.18 DM type 2 (diabetes mellitus, type 2) E11.9 Hypertension I10 GERD (gastroesophageal reflux disease) K21.9 Tobacco abuse Z72.0 DVT prophylaxis Z29.9
[2019-04-29] MEDS: INSULIN ASPART 100 UNITS/ML 3 ML PEN SC SCH ×4 (08:02→22:01)
[2019-04-29] MEDS: NICOTINE 14 MG/24 HR PATCH TD SCH (08:30)
[2019-04-29] MEDS ORDERED: CLOPIDOGREL BISULFATE 75 MG TAB PO SCH (09:00)
[2019-04-29] MEDS ORDERED: PANTOprazole 40 MG TAB PO SCH (09:00)
--- NOTE | 2019-04-29 09:46 | Orthopedic Consultation ---
Date of Consultation April 29, 2019 Assessment & Plan (1) Peripheral vascular disease: Impression: Cellulitis of left lower extremities possibly secondary to small abscess formation. Plan: At this point in time I would stick with the IV antibiotics. I believe it safe for the patient be discharged within 24 hours or less to keep those other appointments. Definitive care can be obtained at his prior surgical destination History of Present Illness Reason for Consultation: Chief complaint: Left lower extremity difficulty and cellulitis James is 58 years of age ongoing problem now for several day duration of inc reasing left lower extremity cellulitis that seems to be improving here today or last 12 hours. 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 He is alert oriented moderate complaints of pain he is not writhing in pain Attending Physician: Perez Friend MD Allergies Allergy/AdvReac Type Severity Reaction Status Date / Time gabapentin Allergy Unknown Unverified 04/28/19 16:55 tramadol Allergy Unknown Unverified 04/28/19 16:55 Home Medications Home Medications Medication Instructions Recorded Confirmed Type clopidogrel 75 mg PO DAILY 04/28/19 04/28/19 History insulin aspart U-100 [Novolog 10 unit SUBCUT TIDM 04/28/19 04/28/19 History Flexpen U-100 Insulin] insulin glargine [Lantus Solostar 45 unit SUBCUT BID 04/28/19 04/28/19 History U-100 Insulin] lisinopril 0 mg PO DAILY 04/28/19 04/28/19 History metformin 0 mg PO BID 04/28/19 04/28/19 History omeprazole 0 mg PO DAILY 04/28/19 04/28/19 History Patient History Medical History Diabetes GERD (gastroesophageal reflux disease) Hypertension Peripheral vascular disease Social History Preferred Language: Tajik Communication Ability: Effective Accounting Auditor Required: No Beliefs That Will Affect Care: None Current Living Situation: Alone Feels Safe at Home: Yes Safety Concerns: Feels Safe At This Time Smoking Status: Current every day smoker Tobacco Type: cigarettes ; Cigarettes Per Day: 5-10 ; Hx Alcohol Use: No Hx Substance Use: No Review of Systems Review of Systems: Denies any fever sweats chills rigors Denies any chest pain shortness of breath No nausea vomiting No genitourinary issues only positive musculoskeletal Physical Exam Physical Exam: Alert oriented to person place time Afebrile temperature 36.8 HEENT examination normal Lungs clear to auscultation Left lower extremity does demonstrate cellulitis left lower extremity on the anterior lateral aspect of the femur. Per the markings of yesterday it has improved. The cellulitis is improving. Slight neuropraxia. Results & Data ([facility]) Vital Signs (Past 12 Hours) Vital Signs Temp Pulse Pulse Resp BP Pulse Ox 04/29/19 07:35 79 04/29/19 07:00 36.8 C 79 18 123/78 94 04/29/19 03:05 36.8 C 84 16 124/75 97 04/28/19 23:50 108 H 04/28/19 23:01 37.1 C 68 18 127/80 98 PG Care Time/CCT Total # of Minutes Spent Total Time Spent with Patient: Total time spent is greater than 50% in coordination of care (as documented) at patient's floor/unit and/or counseling patient: Coding Level of Care Code 42306 Office/Outpt Visit, New Diagnoses Peripheral vascular disease I73.9
--- NOTE | 2019-04-29 12:31 | Electrocardiogram Report ---
Test Reason : Blood Pressure : / mmHG Vent. Rate : 109 BPM Atrial Rate : 109 BPM P-R Int : 156 ms QRS Dur : 088 ms QT Int : 318 ms P-R-T Axes : 042 040 047 degrees QTc Int : 428 ms Sinus tachycardia Otherwise normal ECG No previous ECGs available Confirmed by Ankit Lane ([id number]) on 04/29/2019 12:31:05 PM Referred By: REFERRED SELF Confirmed By:Ankit Lane
[2019-04-29] MEDS ORDERED: VANCOMYCIN CONSULT ACTIVE PRN (13:17)
[2019-04-29] MEDS ORDERED: VANCOMYCIN HCL 2,000 MG in SODIUM CHLORIDE 0.9% 500 ML IV ONE (13:45)
--- NOTE | 2019-04-29 17:29 | Discharge Summary ---
Date of Service April 29, 2019 Admission HPI Per Admitting Provider This is a 58 yo M with PMHx of significant PAD and multiple bypass grafting, most recently had left femoral bypass grafting done on 03/21/19 at [facility], DM II, current tobacco user of 1/2 ppd currently and has reduced this from 1 ppd, has been a smoker since at 14, DM II, HTN, depression who presents with acute onset pain which began several days ago. He reports that he noticed redness developing over the left thigh yesterday, and his parents progressed to involve anterior thigh moving upwards past inguinal ligament and extending towards the abdomen. He cannot recall mechanism of injury to the left leg, however there is an area of healing in the medial aspect of the lower left leg s/p bypass grafting completed at the end of February which could pose as an entry point for infection. He denies any fevers, sweats or chills. He reports that his pain has been very significant. Patient admits to intermittent headache as well as nausea x2 days. He has had a very poor appetite due to pain. Patient notes he previously was taking Percocet 10/325 mg q6h prn chronic pain, however [facility]. He has a pain clinic appointment scheduled for Tuesday at 8 AM which he cannot miss or he will not be allowed to resume pain medication. He reports that all of his previous bypass grafting has been done in [place] by the [facility] or [facility]. Patient's friend, who is also a is at bedside and supports the history. 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 + Dolor. Otherwise normal inspection, no peripheral edema or erythema of other extremities, calfs nontender to palpation, 1+ pulses intact throughout including radial, posterior tibial and dorsalis pedis. Psych: Normal mood and affect Neuro: AAO x 3, strength intact bilaterally and rated 5/5, no gross motor deficits, speech is clear, no peripheral sensory deficits Principal Diagnosis Left upper extremity cellulitis, abscess Discharge Exam General: awake, alert, no apparent distress Head: Normocephalic, atraumatic ENT: PERRL, EOMI, no pharyngeal exudate, mucous membranes moist Chest: Clear to auscultation, on room air, no adventitious breath sounds Cardiac: Regular rate and rhythm, no murmur, no JVD, normal peripheral pulses, good capillary refill Abdominal: NABS x 4 quadrants, soft, nondistended, nontender to palpation, no rebound, guarding or tenderness Extremities: Left lower extremity with dulled erythema, less warmth compared to last evening, erythema is within the outlined border, minimal tenderness to palpation over the knee, nonpainful to touch otherwise, healing left medial posterior scar, no surrounding erythema of that region, no drainage. Multiple scars overlying upper and lower extremities from previous bypass grafting. Otherwise normal inspection, no peripheral edema or erythema, calfs nontender to palpation Psych: Normal mood and affect Neuro: AAO x 3, strength intact bilaterally and rated 5/5, no motor deficits, speech is clear, no peripheral sensory deficits Skin: no rash or erythema Discharge Data Allergies Allergy/AdvReac Type Severity Reaction Status Date / Time gabapentin Allergy Unknown Unverified 04/28/19 16:55 tramadol Allergy Unknown Unverified 04/28/19 16:55 Consultations 04/28/19 18:04 ED Decision to Admit Stat 04/28/19 20:09 Consult Case Management - Discharge Planning Routine 04/28/19 21:06 Consult Orthopedic Surgery Routine 04/29/19 17:15 Burn CD for patient Routine Ordered Studies 04/28/19 15:22 US arterial duplex LE LT Stat US venous doppler LE LT Stat 04/28/19 18:32 CT femur LT w con Stat Hospital Course (1) Postoperative wound cellulitis: - Involving almost the entire upper left thigh, spreading proximally past the inguinal ligament. Likely source of the infection is coming from left lower extremity healing wound s/p most recent bypass graft surgery which occurred on 03/21/2019 at [facility]. - Erythematous area has been outlined with a skin marker - remains within border today and is dulled compared to last evening. Nontender to touch, minimal tenderness over the knee cap region, +less warmth compared to last evening. - Day 2 of abx - zosyn IV , add vancomycin - MRSA swab negative - Pain management with Percocet 10/325 mg, tylenol prn- pain management appt on Tuesday--pt will make it to this appt with hog trader discharge. - PT/OT - CT of the femur reviewed-- imaging reveals Long segment arterial stent occlusion of the superficial femoral and popliteal arteries with patent arterial graft of the left thigh. Moderate subcutaneous edema with areas of mild skin thickening are noted throughout the thigh suggestive of cellulitis. Partially imaged subcentimeter fluid collection of the medial upper calf adjacent to the distal anastomotic site. Seroma, abscess or hematoma are differential considerations. - with recent bypass grafting done it is concerning that this is an abscess, pt needs vascular consultation but it would be most appropriate for him to see his team at [facility]. -Send copy of imaging studies and labs with him at d/c for [facility] - discussed with ammunition assembly laborer - Pt has been accepted by [facility] in [place] for direct admission on 04/30/19 as I have personally spoken to accepting physician and have arranged. He will remain in our facility overnight for further antibiotics, then be dc'd no later than 6am to make his 8am appointment with Pain Management. He will then need to be driven to OSH, arriving there in the afternoon per their request. Pt is agreeable to this and expressed understanding. (2) Peripheral vascular disease: - He reports that all of his [facility] through [facility] [place] or [facility] including all previous grafting procedures. - Continue Plavix 75 mg daily (3) Post-operative pain: - He has a pain clinic appointment scheduled for Tuesday at 8 AM which he cannot miss or he will not be allowed to resume pain medication. Has appointment in [place]. Has been waiting multiple months to see the provider. If misses then he will be forced to start over for an opening. - Plan to discharge the patient tomorrow morning (4) DM type 2 (diabetes mellitus, type 2): - a1c in process, redraw tomorrow - ISS with Accu-Cheks AC at bedtime, will continue with Lantus 45 units in the morning and at bedtime, - hold metformin, hold NovoLog 10 units AC - Heart healthy/diabetic diet - Continue IV Zosyn and vanc as above (5) Hypertension: -BP well controlled presently, continue lisinopril 2.5 mg daily (6) GERD (gastroesophageal reflux disease): -Continue omeprazole 10 mg every morning (7) Tobacco abuse: -Currently smokes one half PPD, this is down from 1 pack/day, has smoked since age 14 -Cessation encouraged -Nicotine patch ordered 14 mcg daily (8) DVT prophylaxis: -Cesar on right lower extremity only, Plavix CODE STATUS: Full code Disposition: Patient from home, discharge tomorrow morning - will prep discharge today for hog trader dc around 0400. Pt accepted as an admission at [facility] under vascular team service for 04/30/19. Total Time Total Time Spent Total Time Spent (In Minutes): 40 Discharge Plan Discharge Items Patient Disposition: Transfer [facility] Reason For Visit: CELLULITIS Discharge Diagnosis: LLE cellulitis, abscess at anastomic site of left medial leg bypass graft Condition on Discharge: Good Activity: Resume your previous activity Lifting: Gradually increase as tolerated Bathing: No limitations Exercise/Sports: Gradually increase as tolerated Driving/Machine Use: Do not drive until cleared by PCP Non-emergency contact: Primary Care Provider Call non-emergency contact if: you have any medication questions, your symptoms worsen, your pain is not controlled and your pain is worsening Follow-up/Referrals: [facility] [Other] PCP,NO [Primary Care Provider] - Diet: Carb Consistent or DM2 and Heart Healthy Addtl Attending Provider Instructions: You were admitted to [facility] due to cellulitis of the Left upper extremity and diagnosed with the same. A CT revealed that you may have a small abscess involving the anastomotic site where recent bypass grafting was done in the left medial lower leg, and likely caused cellulitis. During your stay here you were treated with supportive care, medications IV zosyn and vancomycin, including pain medication, and your symptoms improved. Imaging studies which were completed include CT of the femur, and were abnormal. You have been accepted to the [facility] in [place] as a direct admission under vascular service beginning on 04/30/19 - You will receive doses of IV Zosyn and vancomycin prior to discharge here at [facility]. - Copies of your chart including most recent labs and imaging studies done here will be given to you on a disk: including dopplers of the Left leg and CT of the femur, please give this to hospital upon arrival. Please proceed to your pain management appointment scheduled in [place] at 8 AM on 04/30/2019 as already scheduled After pain management appointment, please have family or friend drive you to the [facility] [place]. You may enter at the main desk and say that you have been admitted as a direct admission and there was a bed waiting for you. You do not need to go through the ER for admission. Medications: Continue taking you medications as prescribed Continue nicotine patch. Do not wear the nicotine patch and smoke at the same time!! Try to stop smoking as soon as you can. Monitor your glucose with glucometer, and eat a healthy diet low in carbs. DO NOT DRINK REGULAR SODA! Appointments: Follow up with PCP and vascular surgery as directed. Go to the pain management clinic appt as scheduled Continue to the [facility] as above. Pending Studies at Discharge: No Studies:: CT left leg Doppler left leg Stand-Alone Forms: My [facility] Skilled Items Patient informed of condition?: Yes DNR: No Discharge Level of Care: Other Communicable Disease: No Discharge Prognosis: Stable Lines: None Urinary Catheter: No Medications and DC Order Prescriptions: New pantoprazole 40 mg Tablet,Delayed Release (Dr/Ec) 40 mg PO DAILY Qty: 30 RF: 0 nicotine 7 mg/24 hr Patch 24 Hour 14 mg transdermal QAM Qty: 14 RF: 1 Continued clopidogrel 75 mg Tablet 75 mg PO DAILY RF: 0 omeprazole 10 mg Capsule,Delayed Release(Dr/Ec) 0 mg PO DAILY RF: 0 metformin 1,000 mg Tablet 0 mg PO BID RF: 0 lisinopril 2.5 mg Tablet 0 mg PO DAILY RF: 0 insulin aspart U-100 [Novolog Flexpen U-100 Insulin] 100 unit/mL (3 mL) Insulin Pen 10 unit SUBCUT TIDM RF: 0 Lantus Solostar U-100 Insulin 100 unit/mL (3 mL) Insulin Pen 45 unit SUBCUT BID RF: 0 Discharge Orders: Discharge Order (Routine); Ordered 04/30/19 Ordered By: Madhavi Dan Admission Data Admit Date/Time: 04/28/19 18:49 Attending Provider: Perez Friend Admit Provider: Perez Friend Primary Care Provider: PCP,NO Other Providers: Perez Friend ; Eusebio Roberts Coding Level of Care Code D/C Day Management >30 mins Diagnoses Postoperative wound cellulitis T81.49XA Peripheral vascular disease I73.9 Post-operative pain G89.18 DM type 2 (diabetes mellitus, type 2) E11.9 Hypertension I10 GERD (gastroesophageal reflux disease) K21.9 Tobacco abuse Z72.0 DVT prophylaxis Z29.9
[2019-04-29] MEDS ORDERED: PHARMACY GLYCEMIC MGMT CONSULT PRN (21:48)
[2019-04-29] MEDS ORDERED: INSULIN HUMAN REGULAR PER UNIT 8 UNITS in SYRINGE 7.92 ML IV ONE (22:00)
[2019-04-30] MEDS ORDERED: INSULIN ASPART 100 UNITS/ML 3 ML PEN SC SCH
[2019-04-30] MEDS: PIPERACILLIN/TAZOBACTAM 3.375 GM in DEXTROSE 5% 100 ML IV SCH (01:13)
[2019-04-30 01:48] LABS: Hematocrit (blood only) 32.1 % (42-52); Platelet Count 233 K/uL (130-400); RDW Coefficient of Variation 19.9 % (11.5-14.5); RDW Standard Deviation 54.9 fL (36.4-46.3); Red Blood Count 4.17 M/uL (4.7-6.1); White Blood Count 5.05 K/uL (4.8-10.8)
[2019-04-30 01:57] LABS: Mean Corpuscular Hgb Conc 31.2 g/dL (32-36)
[2019-04-30] MEDS ORDERED: VANCOMYCIN HCL 1,250 MG in SODIUM CHLORIDE 0.9% 250 ML IV SCH (02:00)
[2019-04-30 02:07] LABS: Albumin Level 2.6 gm/dl (3.4-5.0); BUN Creatinine Ratio 11.3 (10-20); Calcium 8.5 mg/dl (8.5-10.1); Creatinine Clr Calc Pharmacy 78.9 ml/min; Est GFR (African American) 85.9; Est GFR (Non-African American) 74.1; Potassium 3.7 mmol/L (3.5-5.1)
[2019-04-30 02:09] LABS: Albumin Globulin Ratio 0.7 (0.9-2); Bilirubin,Total 0.5 mg/dl (0.2-1); Globulin 3.8 gm/dl (2.5-4.0); Total Protein 6.4 gm/dl (6.4-8.2)
[2019-04-30 05:49] LABS: Estimated Average Glucose 212 mg/dl
[2019-04-30 05:55] LABS: Estimated Average Glucose 209 mg/dl; Hemoglobin A1C 8.9 % (4.5-5.6)
[2019-04-30] MEDS ORDERED: AMOXICILLIN/CLAVULANATE 875 MG TAB PO SCH (08:00)
[2019-04-30] MEDS ORDERED: DOXYCYCLINE HYCLATE 100 MG CAP PO SCH (09:00)
== END 2019-04-30 04:43 | DRG 863 ==
LOC: ED 15:02 → SUATTDRO 18:49 → 2W 18:49

== ENCOUNTER 2023-06-09 05:57 | Inpatient (IN) ==
--- NOTE | 2023-06-03 11:25 | Anesthesiology Consultation ---
Date of Service June 03, 2023 Assessment & Plan (1) Encounter for pre-operative examination: - check BSG am DOS. - Case discussed in detail with Dr. Wakefield including CBC notation on toxic vacuolation and polychromasia; he advised patient is acceptable to proceed at current status from his standpoint. - PCP office visit 05/18/23: "...chronic pain/opioid dependence continues taper dosing of oxycodone due to cancelling pill count appointment, incorrect pill count...5 mg q 12 hrs prn x 2 weeks...scheduled for decompression L3/4, hardware L4-5, instrumented fusion L3-4 vs L3-5 06/09/[address] Tesfaye. DM II uncontrolled HgbA1c 8.4% (significant improvement)...hypertension: blood pressure reading elevated, admits to smoking cigarettes prior to appointment...follow up vascular appointment June...return to clinic in 6 months..." - cardiology office visit 04/07/23: "...CAD...no dyspnea or chest pain with 2 flights of stairs. Feeling well overall with no significant cardiac complaints...CABG x 3 JADE-LAD, SVG to circumflex and RCA 12/2001...cardiac cath 05/25/2021...JADE to LAD patent saphenous to circumflex and RCA occluded...carotid 08/2021 mild plaque no hemodynamically significant ICA stenosis...hemodynamically significant stenosis of the right common femoral artery. However, distal perfusion is relatively well preserved. No occlusions or other significant stenoses appreciated...infrequently will notice mild blurry vision but not the last week. Agrees to restart ordered medication...diabetes not controlled..." A1c from 05/05/23 subsequently received and is 8.4%: surgeon's office notified. - Per manager assessment on 05/26/23: No known infectious disease contacts, current infectious disease symptoms in past 10 days or COVID positive test result in the past 30 days. Chart Review Chart Review: Acceptable Risk for Surgery and Patient NOT seen in Pre Admission Testing History Surgery Operation Date: 06/09/23 10:15 Proposed Procedures p L3-L4 Decopression and Fusion, Hardware Removal L4-L5 Spinal Cord Monitoring - Fabio Tesfaye DO Height/Weight Height: 5 ft 11 in Weight: 83.915 kg Allergies Allergy/AdvReac Type Severity Reaction Status Date / Time baclofen Allergy Unknown Rash Unverified 05/26/23 09:50 gabapentin Allergy Unknown Itching Unverified 05/26/23 09:50 tramadol Allergy Unknown Itching Unverified 05/26/23 09:50 Medications Home Medications Medication Instructions Recorded Confirmed Last Taken insulin glargine 100 unit/mL (3 45 unit subcut QA 04/28/19 05/26/23 07/04/22 mL) subcutaneous pen (Lantus Solostar U-100 Insulin) metformin 1,000 mg tablet 1,000 mg PO BID 04/28/19 05/26/23 07/04/22 omeprazole 10 mg capsule,delayed 10 mg PO BID 04/28/19 05/26/23 07/04/22 release lisinopril 10 mg tablet 10 mg PO QAM 07/18/19 05/26/23 07/04/22 amlodipine 10 mg tablet 10 mg PO QAM 05/26/23 05/26/23 Unknown aspirin 81 mg capsule 81 mg PO DAILY 05/26/23 05/26/23 Unknown metoprolol tartrate 50 mg tablet 50 mg PO BID 05/26/23 05/26/23 Unknown oxycodone 10 mg tablet 10 mg PO QID 05/26/23 05/26/23 Unknown rosuvastatin 40 mg tablet 40 mg PO HS 05/26/23 05/26/23 Unknown tamsulosin 0.4 mg capsule 0.4 mg PO QAM 05/26/23 05/26/23 Unknown Past Medical History Medical History CAD (coronary artery disease) CABG x 3 1999 Chronic pain Diabetes IDDM Dyslipidemia GERD (gastroesophageal reflux disease) History of COVID-19 [facility]; resolved History of prostate cancer 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 Hypertension 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 Peripheral vascular disease Sleep apnea mild, unable to tolerate CPAP Past Family History Family History Other No family history of adverse response to anesthesia Past Surgical History Surgical History History of coronary artery bypass graft x 3 ~1999- [facility] History of left below knee amputation History of surgery on lower extremity multiple prior to amputation Hx of cardiac catheterization 2021- [facility], no stents; ~1999 prior to CABG Hx of cervical spine surgery Hx of lumbosacral spine surgery S/P placement of nerve stimulator removed (2014) Social History Smoking Status: Current every day smoker tobacco type: cigarettes Smoking cigarettes per day: 10-15 per day -- advised Do You Dip or Chew Tobacco: No Hx Alcohol Use: No Hx Substance Use: Yes (advised) substance use type: marijuana Last Used Substance Other:: 05/21/23 - tried for pain, did not work, not currently using Lab Results Anesthesia Preop Results Results Anesthesia Widget: WBC 10.95 K/ul (4.8-10.8) H 05/25/23 Hgb 15.0 g/dl (14.0-18.0) 05/25/23 Hct 47.3 % (42.0-52.0) 05/25/23 Plt 251 K/uL (130-400) 05/25/23 Na 138 mmol/L (136-145) 05/25/23 K 4.1 mmol/L (3.5-5.1) 05/25/23 Cl 104 mmol/L (98-107) 05/25/23 CO2 26 mmol/L (21-32) 05/25/23 BUN 16 mg/dl (6-23) 05/25/23 Creat 0.91 mg/dl (0.6-1.4) 05/25/23 Glucose Level 69 mg/dl (70-99(Fasting)) L 05/25/23 PT 10.9 Seconds (9.0-12.0) 05/25/23 PTT 28 Seconds (21-31) 05/25/23 INR 1.0 (0.9-1.1) 05/25/23 Urine Color Yellow 05/25/23 Urine Appearance Clear (Clear) 05/25/23 Urine pH 5.0 (4.5-7.5) 05/25/23 Urine Specific [place] 1.044 (1.000-1.030) H 05/25/23 Urine Protein Trace (Negative) H 05/25/23 Urine Glucose (UA) 3+ (Negative) H 05/25/23 Urine Ketones Trace (Negative) H 05/25/23 Urine Blood Negative (Negative) 05/25/23 Urine Nitrite Negative (Negative) 05/25/23 Urine Bilirubin Negative (Negative) 05/25/23 Urine Urobilinogen Negative (Negative) 05/25/23 Urine Leukocyte Esterase Negative (Negative) 05/25/23 Urine WBC (Auto) 1-5 /hpf (0-5) 05/25/23 Urine RBC (Auto) 5-10 /hpf (0-4) H 05/25/23 Urine Hyaline Casts (Auto) 0 /lpf (0-5) 05/25/23 Urine Epithelial Cells (Auto) >30 /lpf (0-5) H 05/25/23 Urine Bacteria (Auto) Negative (Negative) 05/25/23 Blood Type A Positive 05/25/23 Antibody Screen NEGATIVE 05/25/23 Testing Laboratory Results 05/05/23 A1c: 8.4% Surgeon's office notified of elevated A1c. Electrocardiogram Date: 05/25/23 NSR, rate 67 bpm Chest X-Ray Date: 05/25/23 No acute chest disease. Echocardiogram Date: 05/31/23 EF 55-60% Normal LV wall motion Dilated aortic root measuring 4 cm, dilated ascending aorta measuring 4.1 cm No significant valvular pathology Stress Test Date: 05/15/21 Lexiscan Negative for myocardial ischemia Nuclear images to follow Moderate ischemia of the inferior territory Consider cardiac cath Patient had subsequent cath not requiring stents per cardio records and patient (requests made for cardiac catheterization report and not received) Cervical Spine Date: 07/05/22 MRI Postoperative and spondylotic change as above. (detailed report in chart under imaging) Cervical cord is normal in morphology and signal intensity.
[2023-06-09] MEDS: ACETAMINOPHEN 500 MG TAB PO SCH (06:34)
[2023-06-09] MEDS: CeleBREX 200 MG CAP PO SCH (06:34)
[2023-06-09] MEDS: LR 60ML/HR IV SCH (06:35)
[2023-06-09] MEDS: LR 15ML/HR IV SCH (06:50)
[2023-06-09] MEDS ORDERED: fentaNYL citrate PF 100 MCG/2 ML VIAL IV PRN (07:02)
[2023-06-09] MEDS ORDERED: ONDANSETRON INJ 2 MG/ML 2 ML VIAL IV PRN ×2 (07:02→11:34)
[2023-06-09] MEDS ORDERED: ePHEDrine sulfate 50 MG/ML AMP IV PRN (07:02)
[2023-06-09] MEDS ORDERED: ATROPINE SULFATE 0.1 MG/ML 10ML SYR IV PRN (07:02)
[2023-06-09] MEDS ORDERED: PROMETHAZINE HCL 6.25 MG in SODIUM CHLORIDE 0.9% 50 ML IV PRN (07:02)
[2023-06-09] MEDS ORDERED: MIDAZOLAM HCL 1 MG/ML 2ML VIAL ONE (07:29)
[2023-06-09] MEDS ORDERED: ROCURONIUM BROMIDE 10 MG/ML 5 ML VIAL IV ONE ×2 (07:29→08:27)
[2023-06-09] MEDS ORDERED: PROPOFOL IV EMULSION 10 MG/ML 20 ML VIAL IV ONE (07:29)
[2023-06-09] MEDS ORDERED: LIDOCAINE 2% 2 ML VIAL/AMP(20MG/ML) INFIL ONE (07:29)
[2023-06-09] MEDS ORDERED: fentaNYL citrate PF 100 MCG/2 ML VIAL ONE (07:30)
--- NOTE | 2023-06-09 07:48 | History & Physical Bridge Note ---
Date of Service June 09, 2023 History & Physical Bridge Note I have examined the patient, reviewed the History & Physical and in the interval since the performance of the History & Physical I have noted the following changes of clinical significance: no changes noted
[2023-06-09] MEDS ORDERED: KETAMINE HCL INJ 50 MG/ML 10 ML VIAL ONE (07:49)
--- NOTE | 2023-06-09 07:49 | History & Physical Report ---
Date of Service June 09, 2023 Assessment & Plan (1) Neurogenic claudication due to lumbar spinal stenosis: Plan: L3-L4 decompression and fusion, hardware removal L4-L5 History of Present Illness Chief Complaint: Back and bilateral leg pain Primary Care Provider: ABDIRASHID Blair This is a 63-year-old male presents with chronic persistent back and leg pain and failing course of nonoperative care is here for surgical invention. Allergies Allergy/AdvReac Type Severity Reaction Status Date / Time baclofen Allergy Unknown Rash Verified 06/09/23 06:39 gabapentin Allergy Unknown Itching Verified 06/09/23 06:39 tramadol Allergy Unknown Itching Verified 06/09/23 06:39 Home Medications Medication Instructions Recorded Confirmed Type insulin glargine 100 unit/mL (3 45 unit subcut QAM 04/28/19 06/09/23 History mL) subcutaneous pen (Lantus Solostar U-100 Insulin) metformin 1,000 mg tablet 1,000 mg PO BID 04/28/19 06/09/23 History omeprazole 10 mg capsule,delayed 10 mg PO BID 04/28/19 06/09/23 History release lisinopril 10 mg tablet 10 mg PO QAM 07/18/19 06/09/23 History amlodipine 10 mg tablet 10 mg PO QAM 05/26/23 06/09/23 History aspirin 81 mg capsule 81 mg PO DAILY 05/26/23 06/09/23 History metoprolol tartrate 50 mg tablet 50 mg PO BID 05/26/23 06/09/23 History oxycodone 10 mg tablet 10 mg PO QID 05/26/23 06/09/23 History rosuvastatin 40 mg tablet 40 mg PO HS 05/26/23 06/09/23 History tamsulosin 0.4 mg capsule 0.4 mg PO QAM 05/26/23 06/09/23 History Past Med/Surg History Medical History CAD (coronary artery disease) CABG x 3 1999 Chronic pain Diabetes IDDM Dyslipidemia GERD (gastroesophageal reflux disease) History of COVID-19 02/2023- [facility]- no hosp; resolved History of prostate cancer 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 Hypertension 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 Peripheral vascular disease Sleep apnea mild, unable to tolerate CPAP Surgical History History of coronary artery bypass graft x 3 ~1999- [facility] History of left below knee amputation History of surgery on lower extremity multiple prior to amputation Hx of cardiac catheterization 2021- [facility] [place], no stents; ~1999 prior to CABG Hx of cervical spine surgery Hx of lumbosacral spine surgery S/P placement of nerve stimulator removed (2014) Family History Other No family history of adverse response to anesthesia Social History Smoking Status: Current every day smoker Tobacco Type: Cigarettes Cigarettes Per Day: 10-15 per day -- advised; Second Hand Exposure: No; Do You Dip or Chew Tobacco: No; Tobacco Cessation Education Requested by Patient: No Hx Alcohol Use: No Hx Substance Use: Yes (advised) Last Used Substance Other:: 05/21/23 - tried for pain, did not work, not currently using Preferred Language: Polish Communication Ability: Effective 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 Beliefs That Will Affect Care: None marital status: Single Current Living Situation: Alone Other Information That Helps Us Care for You: No Feels Safe at Home: Yes Safety Concerns: Feels Safe At This Time Assistive Devices: Contacts, Denture - Upper, Denture - Lower, Glasses, Hearing Aid - Bilateral, Prosthesis and Wheelchair Assistive Devices Comment: left BKA Physical Exam Physical Exam: Patient is alert and oriented Heart regular in rhythm lungs clear Results & Data Results & Data Vital Signs (Past 12 Hours) Vital Signs Temp Pulse Resp BP Pulse Ox O2 Del Method 06/09/23 06:25 37 C 67 20 118/78 95 Room Air
[2023-06-09] MEDS: ceFAZolin 2000MG 2,000 MG/15 ML SYR IV SCH ×2 (08:03→16:25)
[2023-06-09] MEDS: BUPIVACAINE/EPINEPHRINE 0.25% 1:200,000 30 ML VIAL ONE (08:28)
[2023-06-09] MEDS ORDERED: DEXAMETHASONE SOD INJ 4 MG/ML VIAL ONE (08:39)
[2023-06-09] MEDS ORDERED: ONDANSETRON INJ 2 MG/ML 2 ML VIAL ONE (08:39)
[2023-06-09] MEDS ORDERED: ePHEDrine sulfate 50 MG/ML AMP ONE (09:18)
[2023-06-09] MEDS ORDERED: PHENYLEPHRINE 100MCG/ML 10ML SYR IV ONE (09:18)
[2023-06-09] MEDS: FLOSEAL HEMOSTATIC MATRIX 10ML TOP ONE (09:30)
[2023-06-09] MEDS ORDERED: HYDROmorphone INJ 2 MG/ML SYR/VIAL ONE ×2 (09:36→10:01)
[2023-06-09] MEDS ORDERED: SUGAMMADEX SODIUM 200 MG/2 ML VIAL IV ONE (09:50)
[2023-06-09] MEDS: ceFAZolin 330 MG/ML 1 GM VIAL ONE (09:57)
--- NOTE | 2023-06-09 09:59 | Operative Report ---
Post Operative Report Pre & Post Diagnosis Operation Date: 06/09/23 07:45 Pre-Op Diagnosis: Lumbar Spondylosis Lumbar spinal stenosis with neurogenic claudication Post-Op Diagnosis: Same I identified the patient and participated in the time-out.: Yes Procedure Operation Date: 06/09/23 07:45 Actual Procedures #1 removal of posterior instrumentation L4-5. #2 exploration of fusion L4-5. #3 lumbar decompression with bilateral medial facetectomies L2-L3 L3-L4. #4 posterior spinal fusion L3-L4. #5 placement posterior instrumentation L3-L5. #6 interbody fusion L3-L4. #7 placement Spira 15 x 26 mm cage at L3-L4. #8 placement locally harvested morselized autograft and posterior gutters. #9 placement of infuse collagen sponge, with Koros bone graft in the posterior lateral gutters and course bone graft in the interbody space. Surgeon Fabio Tesfaye DO [employer] Agent Sayra Woo Estimated Blood Loss 100 Findings Consistent with Post-Op Diagnosis Specimens None Indications This is a 63-year-old female that presents above-mentioned diagnosis after failing course of nonoperative care is here for surgical invention. Description of Procedure Patient met with identified informed consent obtained. Patient was then taken to the operative suite underwent patient placed in a prone position on the Charan table top of the Armando frame. All bony promises well-padded eyes inspected to ensure no external pressure placed upon the. This point the lumbar spine was prepped and draped in a normal sterile fashion. Sharp dissection with the assistance of Bovie cautery form down to and exposing the lamina transverse processes of L3 and instrumentation at L4-5 bilaterally. I then proceeded move the hardware bilaterally explore the fusion mass noting it to be mature and intact. Then performed a complete laminectomy of L3 including bilateral medial facetectomies and foraminotomies addressing severe spinal stenosis. Partial laminectomy of L2 including bilateral medial facetectomies to address all lateral stenosis. Pedicle screws then placed at L3-L4-L5 bilaterally with assistance of fluoroscopy and the properly sized braxton placed. By way of a trans foraminal approach on the right a complete discectomy of L3-L4 was performed endplates guided to subcortical bleeding bone and a 15 x 26 mm Spira cage filled with Koros bone graft tapped in position. The rods were then compressed locked into final position bilaterally. The transverse processes of L3-L4 burred to subcortically and bone. Infuse collagen sponge, with Koros and locally harvested morselized autograft placed in the posterior lateral gutters. 15 round ROOSEVELT drain inserted. The incision was then closed with 1 Vicryl to fascia 2-0 Vicryl subcutaneously and 4 Monocryl for final skin closure. Steri-Strips sterile dressing placed. Patient waken taken PACU stable condition. Please note spinal cord monitoring was utilized at the procedure no changes noted. Lastly Sayra Woo was present at the entire surgeon while the patient positioning complex portion of the surgery and final skin closure. I attest to the content of the Intraoperative Record and any orders documented therein. Any exceptions are noted below.
[2023-06-09] MEDS: HYDROmorphone INJ 2 MG/ML SYR/VIAL IV PRN (10:41)
--- NOTE | 2023-06-09 10:42 | Fluoroscopy Report ---
FL lumbar spine 2-3V CLINICAL HISTORY: L3-L4 DECOMPRESSION AND FUSION L4-L5 HW REMOVAL COMPARISON STUDY: None. FLUOROSCOPY TIME: 12 seconds. FLUOROSCOPY IMAGES: 2 Ka,r: 9.9 mGy FINDINGS: There is 3 level posterior decompression fusion within the lumbar spine with pedicle screws and rods. The exact levels are difficult to clearly identify on the spot images. The hardware appear s intact. IMPRESSION: Fluoroscopic assistance as above. ACT 112: Negative or not required by law. Electronically signed by: Evangelist Hidalgo M.D. 06/09/2023 10:41 AM
--- NOTE | 2023-06-09 11:01 | Anesthesiology Progress Note ---
Date of Service June 09, 2023 Anesthesia Post Procedure Vital Signs Vital Signs: Temp Pulse Pulse Resp BP Pulse Ox O2 Del Method 06/09/23 10:50 67 15 117/68 94 Nasal Cannula 06/09/23 10:40 66 12 117/66 95 Nasal Cannula 06/09/23 10:30 63 13 103/60 95 Oxymask 06/09/23 10:20 63 14 108/60 96 Oxymask 06/09/23 10:16 36.3 C L 67 12 123/66 97 Oxymask 06/09/23 06:25 37 C 67 20 118/78 95 Room Air O2 Flow Rate 06/09/23 10:50 3 06/09/23 10:40 3 06/09/23 10:30 10 06/09/23 10:20 10 06/09/23 10:16 10 06/09/23 06:25 Pain Intensity Bilateral Back: Pain Intensity: 5 Lower Back: Pain Intensity: 7 Transfer of Care Handoff Completed per policy Notes Mental Status: alert / awake / arousable Patient Amnestic to Procedure: Yes Nausea / Vomiting: adequately controlled Pain: adequately controlled Airway Patency, RR, SpO2: stable & adequate BP & HR: stable & adequate Hydration State: stable & adequate Anesthetic Complications: no major complications apparent
[2023-06-09] MEDS ORDERED: DO NOT ADMINISTER PNEUMOCOCCAL VACCINE PRN (11:34)
[2023-06-09] MEDS ORDERED: LORazepam 0.5 MG TAB PO PRN (11:34)
[2023-06-09] MEDS ORDERED: LORazepam 0.5 MG in SYRINGE 0.25 ML IV PRN (11:34)
[2023-06-09] MEDS ORDERED: PROMETHAZINE HCL 12.5 MG in SODIUM CHLORIDE 0.9% 50 ML IV PRN (11:34)
[2023-06-09] MEDS ORDERED: ACETAMINOPHEN 500 MG TAB PO PRN (11:34)
[2023-06-09] MEDS ORDERED: ONDANSETRON 4 MG OD TAB PO PRN (11:34)
[2023-06-09] MEDS ORDERED: SOD PHOSPHATE/SOD BIPHOSPHATE ENEMA 132 ML BTL PR PRN (11:34)
[2023-06-09] MEDS ORDERED: METOCLOPRAMIDE HCL INJ 5 MG/ML 2 ML VIAL IV PRN (11:34)
[2023-06-09] MEDS ORDERED: hydrOXYzine HCl 25 MG TAB PO PRN (11:34)
[2023-06-09] MEDS ORDERED: FAMOTIDINE 20 MG TAB PO PRN (11:34)
[2023-06-09] MEDS ORDERED: HYDROmorphone INJ 0.5 MG/0.5 ML SYR IV PRN (11:34)
[2023-06-09] MEDS ORDERED: diphenhydrAMINE Capsule 25 MG CAP PO PRN (11:34)
[2023-06-09] MEDS ORDERED: ALUMINUM/MAGNESIUM SUSP 30 ML UDC PO PRN (11:34)
[2023-06-09] MEDS ORDERED: PHARMACY GLYCEMIC MGMT CONSULT PRN (11:34)
[2023-06-09] MEDS ORDERED: DO NOT ADMINISTER FLU VACCINE PRN (11:34)
[2023-06-09] MEDS ORDERED: NALOXONE HCL 0.4 MG/1 ML VIAL/CARP IV PRN (11:34)
[2023-06-09] MEDS ORDERED: MAGNESIUM HYDROXIDE SUSP 30 ML UDC PO PRN (11:34)
[2023-06-09] MEDS ORDERED: bisacodyL 10 MG SUPP PR PRN (11:34)
[2023-06-09] MEDS ORDERED: ACETAMINOPHEN 1,000 MG/100 ML VIAL IV PRN (11:34)
[2023-06-09] MEDS: SODIUM CHLORIDE 0.9% 1,000 ML IV SCH (11:44)
[2023-06-09] MEDS ORDERED: GLUCOSE 10 TAB/TUBE PO PRN (12:15)
[2023-06-09] MEDS ORDERED: CARBOHYDRATES FOR HYPOGLYCEMIA PO PRN (12:15)
[2023-06-09] MEDS ORDERED: GLUCOSE 40% GEL 15 GM TUBE PO PRN (12:15)
[2023-06-09] MEDS ORDERED: DEXTROSE 50% 50 ML SYRINGE IV PRN (12:15)
[2023-06-09] MEDS ORDERED: GLUCAGON FOR INJ 1 MG VIAL IM PRN (12:15)
[2023-06-09] MEDS: INSULIN ASPART PER UNIT CHARGE SC SCH (13:00)
[2023-06-09] MEDS: KETOROLAC 30 MG/ML VIAL IV SCH (13:02)
--- NOTE | 2023-06-09 14:37 | Pharmacy Report ---
Pharmacy Glycemic Short Note 2 - Date of Service June 09, 2023 - Glycemic Short BSG Results (Last 24 hours): 06/09/23 06/09/23 06/09/23 06:33 10:16 11:44 POC Glucose 117 H 144 H 129 H OUTPATIENT ANTIDIABETIC REGIMEN: * metformin 1000 mg bid, Lantus 45 units daily ASSESSMENT: * 63 year old male, now s/p surgery - POD 0 - Pharmacy consulted for glycemic management. Patient received steroids intraoperatively, anticipate steroid induced hyperglycemia. Postop BSG 129 mg/dL - will stress outpatient insulin dose. Plan to give Lantus 30 units x 1 now and have scale on for HS as unclear what PO status will be like. 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 PLAN FOR INPATIENT GLYCEMIC CONTROL: * Hold outpatient oral diabetes medications * Basal insulin * Lantus 30 units x 1 now * Lantus 0-10 units HS * Bolus insulin * NovoLog per scale ACHS or Q6hrs while NPO * Goal Range: Low 110 mg/dL - High 140 mg/dL * Correction Factor: 25 mg/dL/unit * Nutritional / Prandial insulin per carb ratio of 1 unit per 8 grams CHO consumed
[2023-06-09] MEDS: oxyCODONE HCL IR 5 MG TAB (IMMEDIATE RELEASE) PO PRN (14:41)
[2023-06-09] MEDS: LANTUS PER UNIT CHARGE SC SCH ×2 (15:35→20:53)
[2023-06-09] MEDS: NICOTINE 14 MG/24 HR PATCH TD SCH (17:05)
[2023-06-09] MEDS: HYDROmorphone INJ 1 MG/ML SYRINGE IV PRN (19:48)
[2023-06-09] MEDS: ROSUVASTATIN CALCIUM 20 MG TAB PO SCH (19:50)
[2023-06-09] MEDS: PANTOprazole 40 MG TAB PO SCH (19:51)
[2023-06-09] MEDS: METOPROLOL TARTRATE 50 MG TAB PO SCH (19:51)
[2023-06-09] MEDS: DOCUSATE SODIUM/SENNA 50/8.6MG TAB PO SCH (19:52)
[2023-06-10] MEDS: INSULIN ASPART PER UNIT CHARGE SC SCH (00:08)
[2023-06-10] MEDS: POLYETHYLENE (MIRALAX) 17 GM PACK PO SCH (05:12)
[2023-06-10 07:12] LABS: Basophils # (auto) 0.01 K/uL (0.00-0.20); Basophils % (auto) 0.1 %; Hematocrit (blood only) 36.9 % (42.0-52.0); Hemoglobin 11.9 g/dl (14.0-18.0); Immature Granulocytes # (auto) 0.05 K/uL (0.01-0.20); Immature Granulocytes % (auto) 0.4 %; Lymphocytes % (auto) 7.1 %; Mean Corpuscular Hemoglobin 26.7 pg (25.0-34.0); Mean Corpuscular Hgb Conc 32.2 g/dL (32.0-36.0); Mean Corpuscular Volume 82.9 fL (80.0-100.0); Mean Platelet Volume 10.9 fL (9.4-12.4); Monocytes % (auto) 3.9 %; Neutrophils % (auto) 88.5 %; Platelet Count 188 K/uL (130-400); RDW Coefficient of Variation 15.6 % (11.5-14.5); RDW Standard Deviation 46.7 fL (36.4-46.3); Red Blood Count 4.45 M/uL (4.70-6.10); White Blood Count 12.66 K/ul (4.8-10.8)
[2023-06-10 07:48] LABS: BUN Creatinine Ratio 20.8 (10-20); Calcium 8.7 mg/dl (8.6-10.3); Est GFR (African American) 97.8 ml/min; Est GFR (Non-African American) 84.4 ml/min; Potassium 4.3 mmol/L (3.5-5.1)
[2023-06-10] MEDS: ASPIRIN 81 MG ECTAB PO SCH (08:58)
[2023-06-10] MEDS: TAMSULOSIN HCL 0.4 MG CAP PO SCH (08:59)
[2023-06-10] MEDS ORDERED: lisinopril 10 MG TAB PO SCH (09:00)
[2023-06-10] MEDS ORDERED: NICOTINE 14 MG/24 HR PATCH TD SCH (09:00)
[2023-06-10] MEDS: amLODIPine BESYLATE 5 MG TAB PO SCH (09:30)
--- NOTE | 2023-06-10 09:57 | Pharmacy Report ---
Pharmacy Glycemic Short Note 2 - Date of Service June 10, 2023 - Glycemic Short BSG Results (Last 24 hours): 06/09/23 06/09/23 06/09/23 10:16 11:44 16:30 Glucose POC Glucose 144 H 129 H 269 H 06/09/23 06/09/23 06/10/23 20:41 23:43 06:18 Glucose 192 H POC Glucose 197 H 249 H 06/10/23 07:24 Glucose POC Glucose 186 H OUTPATIENT ANTIDIABETIC REGIMEN: * metformin 1000 mg bid, Lantus 45 units daily HbA1c ordered ASSESSMENT: 06/10/23: * POD #1, blood sugars poorly controlled postoperatively * Received 8 mg IV dexamethasone in OR, no ongoing steroids ordered * Will tighten Novolog parameters this morning until effect from steroids wears off, loosen carb ratio at dinner 06/09/23: * 63 year old male, now s/p surgery - POD 0 - Pharmacy consulted for glycemic management. Patient received steroids intraoperatively, anticipate steroid induced hyperglycemia. Postop BSG 129 mg/dL - will stress outpatient insulin dose. Plan to give Lantus 30 units x 1 now and have scale on for HS as unclear what PO status will be like. 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 PLAN FOR INPATIENT GLYCEMIC CONTROL: * Hold outpatient oral diabetes medications * Basal insulin * Lantus 30 units SC daily * Lantus 0-5-10 units SC HS (see EHR for details) * Bolus insulin * NovoLog per scale ACHS or Q6hrs while NPO * Goal Range: Low 110 mg/dL - High 140 mg/dL * Correction Factor: 20 mg/dL/unit * Nutritional / Prandial insulin per carb ratio of 1 unit per 7 grams CHO consumed
--- NOTE | 2023-06-10 10:40 | Orthopedic Progress Note ---
Date of Service June 10, 2023 Assessment & Plan (1) Neurogenic claudication due to lumbar spinal stenosis: Plan: James is postoperative day 1 status post hard removal L4-5, decompression and fusion L3-4. He is doing well. Will start physical therapy today. Maintain ROOSEVELT drains. Continue with pain control. DVT prophylaxis is in the form teds and SCDs. Continue with aggressive bowel regimen. Anticipate discharge within the next 24 to 48 hours. Admission and Anticipated Discharge Date Admission Date: June 09, 2023 Marlo Ramirez is postoperative day 1 status post hardware removal L4-5, decompression and fusion L3-4. He had an uneventful evening. Pain is controlled. H&H this morning are 11.9 and 36.9 respectively. ROOSEVELT drain output left shift is 45 cc Review of Systems Review of Systems: All systems reviewed & are unremarkable except as noted in HPI & below Physical Exam Physical Exam: Alert and oriented x 3 sitting in a chair no acute distress lumbar dressing is clean dry intact with functioning ROOSEVELT drain strength intact right lower extremity BKA left lower extremity Results & Data Vital Signs (Past 12 Hours) Vital Signs Temp Pulse Pulse Resp BP BP Pulse Ox 06/10/23 08:39 68 118/63 97 06/10/23 07:19 36.8 C 67 18 106/60 95 06/10/23 03:17 36.6 C 69 16 113/65 95 06/09/23 22:50 36.9 C 70 16 112/58 L 95 O2 Del Method 06/10/23 08:39 Room Air 06/10/23 07:19 Room Air 06/10/23 03:17 Room Air 06/09/23 22:50 Room Air
--- NOTE | 2023-06-10 11:17 | Hospitalist Consultation ---
Date of Consultation June 10, 2023 Assessment & Plan (1) Neurogenic claudication due to lumbar spinal stenosis: -S/p lumbar decompression with hardware placement 06/[address] Tesfaye - Dvt proh/ abx/ pain control per primary team - EBL 100 - Hgb 11.9, was 15.0 preoperatively, suspect acute blood loss anemia -PT/OT (2) Hypertension: -Home meds: metoprolol, lisinopril, and amlodipine Patient reports lisnopril most recently added Continue amlodipine and metoprolol - amlodpine not given 06/08 due to low BPs Lisinopril held for post op day #1, resume as BP allows (3) DM type 2 (diabetes mellitus, type 2): Pharmacy glycemic consult per primary team Home regiment - metformin, Jardiance and lantus (4) Tobacco abuse: Continue nicotine patch Plan Dispo: continued inpatient stay, we will continue to follow to manage blood pressures Thank you for allowing us to participate in the care of this patient, please reach out with any questions or concerns History of Present Illness Reason for Consultation: Medical Management Attending Physician: Fabio Tesfaye, History of Present Illness Mr. Burnham is a 63 year old man with past medical history of HTN, HLD, GERD, and nicotine dependence who presents for elective back surgery with Dr. Tesfaye. Seen on post op day 1 and states he is feeling better, reports poor quality of life with the amount of pain he used to be in. Concerned that his blood pressure was so high because of his pain and that he does not need all of his blood pressure medications. Checks sugars at home, normally around 160. Has been passing gas since surgery, no BM. Allergies Allergy/AdvReac Type Severity Reaction Status Date / Time baclofen Allergy Unknown Rash Verified 06/09/23 06:39 gabapentin Allergy Unknown Itching Verified 06/09/23 06:39 tramadol Allergy Unknown Itching Verified 06/09/23 06:39 Home Medications Medication Instructions Recorded Confirmed Type insulin glargine 100 unit/mL (3 45 unit subcut QAM 04/28/19 06/09/23 History mL) subcutaneous pen (Lantus Solostar U-100 Insulin) metformin 1,000 mg tablet 1,000 mg PO BID 04/28/19 06/09/23 History omeprazole 10 mg capsule,delayed 10 mg PO BID 04/28/19 06/09/23 History release lisinopril 10 mg tablet 10 mg PO QAM 07/18/19 06/09/23 History amlodipine 10 mg tablet 10 mg PO QAM 05/26/23 06/09/23 History aspirin 81 mg capsule 81 mg PO DAILY 05/26/23 06/09/23 History metoprolol tartrate 50 mg tablet 50 mg PO BID 05/26/23 06/09/23 History oxycodone 10 mg tablet 10 mg PO QID 05/26/23 06/09/23 History rosuvastatin 40 mg tablet 40 mg PO HS 05/26/23 06/09/23 History tamsulosin 0.4 mg capsule 0.4 mg PO QAM 05/26/23 06/09/23 History oxycodone 5 mg tablet 5 mg PO Q6H PRN pain #30 tabs 06/09/23 Rx Patient History Medical History CAD (coronary artery disease) CABG x 3 1999 Chronic pain Diabetes IDDM Dyslipidemia GERD (gastroesophageal reflux disease) History of COVID-19 02/2023- [facility]- no hosp; resolved History of prostate cancer 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 Hypertension 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 Peripheral vascular disease Sleep apnea mild, unable to tolerate CPAP Surgical History History of coronary artery bypass graft x 3 ~1999- [facility] History of left below knee amputation History of surgery on lower extremity multiple prior to amputation Hx of cardiac catheterization 2021- [facility] [place], no stents; ~1999 prior to CABG Hx of cervical spine surgery Hx of lumbosacral spine surgery S/P placement of nerve stimulator removed (2014) Family History Other No family history of adverse response to anesthesia Social History Smoking Status: Current every day smoker Tobacco Type: Cigarettes Cigarettes Per Day: 10-15 per day -- advised; Second Hand Exposure: No; Do You Dip or Chew Tobacco: No; Tobacco Cessation Education Requested by Patient: No Hx Alcohol Use: No Hx Substance Use: Yes (advised) Last Used Substance Other:: 05/21/23 - tried for pain, did not work, not currently using Preferred Language: Kazakh Communication Ability: Effective 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 Beliefs That Will Affect Care: None marital status: Single Current Living Situation: Alone Other Information That Helps Us Care for You: No Feels Safe at Home: Yes Safety Concerns: Feels Safe At This Time Assistive Devices: Contacts, Denture - Upper, Denture - Lower, Glasses, Hearing Aid - Bilateral, Prosthesis and Wheelchair Assistive Devices Comment: left BKA Review of Systems Review of Systems: All systems reviewed & are unremarkable except as noted in HPI & below Physical Exam Physical Exam: General: NAD, VS as above Resp: normal respiratory effort, lungs clear to auscultation CV: RRR, no murmur, Back: dressing c/d/i, ROOSEVELT drain present : osullivan in place Extremities: Moves all extremities, left leg prosthesis in place Neuro: A&O x3, Results & Data Results & Data Vital Signs (Past 12 Hours) Vital Signs Temp Pulse Pulse Resp BP BP Pulse Ox 06/10/23 08:39 68 118/63 97 06/10/23 07:19 36.8 C 67 18 106/60 95 06/10/23 03:17 36.6 C 69 16 113/65 95 O2 Del Method 06/10/23 08:39 Room Air 06/10/23 07:19 Room Air 06/10/23 03:17 Room Air Laboratory Results CBC and chemistry reviewed PG Care Time/CCT Total # of Minutes Spent Total Time Spent with Patient: Total time spent is greater than 50% in coordination of care (as documented) at patient's floor/unit and/or counseling patient: Coding Level of Care Code 64420 IN/OBS CONSULT LVL 3,45M Diagnoses Neurogenic claudication due to lumbar spinal stenosis M48.062 Hypertension I10 Hypertension type: unspecified DM type 2 (diabetes mellitus, type 2) E11.9 Tobacco abuse Z72.0 (2) Hypertension Hypertension type: unspecified Qualified Code(s): I10 - Essential (primary) hypertension
[2023-06-10] MEDS: LANTUS PER UNIT CHARGE SC SCH (21:00)
[2023-06-11 07:07] LABS: Estimated Average Glucose 177 mg/dl; Hemoglobin A1C 7.8 % (4.5-5.6)
--- NOTE | 2023-06-11 07:31 | Hospitalist Progress Note ---
Date of Service June 11, 2023 Assessment & Plan (1) Neurogenic claudication due to lumbar spinal stenosis: Plan: -S/p lumbar decompression with hardware placement 06/[address] Tesfaye - Dvt proh/ abx/ pain control per primary team - EBL 100 - Hgb 11.9, was 15.0 preoperatively, suspect acute blood loss anemia -PT/OT (2) Hypertension: Plan: -Home meds: metoprolol, lisinopril, and amlodipine Patient reports lisnopril most recently added Continue amlodipine and metoprolol - amlodpine not given 06/08 due to low BPs Lisinopril held for post op day #1, resume as BP allows (3) DM type 2 (diabetes mellitus, type 2): Plan: Pharmacy glycemic consult per primary team Home regiment - metformin, Jardiance and lantus (4) Tobacco abuse: Plan: Continue nicotine patch Plan Dispo: continued inpatient stay, we will continue to follow to manage blood pressures Thank you for allowing us to participate in the care of this patient, please reach out with any questions or concerns Admission and Anticipated Discharge Date Admission Date: June 09, 2023 Review of Systems 2 Review of Systems: A total of 10 systems was reviewed and is negative other than as listed in the HPI Physical Exam 2 Physical Exam: GENERAL : No acute distress EYES: No icterus, gaze conjugate NOSE: No evidence of epistaxis MOUTH: No lesions or candidiasis NECK: Supple LUNGS: CTA B/L, no wheezes, rales or rhonchi HEART: Regular, rate controlled ABDOMEN: Soft, NT, ND, BS Present EXTREMITIES: No LE edema, pedal pulses intact NEURO: A&OX3 Results & Data Results & Data Vital Signs (Past 12 Hours) Vital Signs Temp Pulse Resp BP Pulse Ox O2 Del Method 06/11/23 07:29 36.7 C 69 16 156/81 H 96 Room Air Laboratory Results 06/10/23 06:18 06/10/23 06:18 Diagnostic Findings Lumbar Spine X-Ray 06/09/23 07:45 FL lumbar spine 2-3V CLINICAL HISTORY: L3-L4 DECOMPRESSION AND FUSION L4-L5 HW REMOVAL COMPARISON STUDY: None. FLUOROSCOPY TIME: 12 seconds. FLUOROSCOPY IMAGES: 2 Ka,r: 9.9 mGy FINDINGS: There is 3 level posterior decompression fusion within the lumbar spine with pedicle screws and rods. The exact levels are difficult to clearly identify on the spot images. The hardware appears intact. IMPRESSION: Fluoroscopic assistance as above. ACT 112: Negative or not required by law. Electronically signed by: Evangelist Hidalgo M.D. 06/09/2023 10:41 AM PG Care Time/CCT Total # of Minutes Spent Total Time Spent with Patient: Total time spent is greater than 50% in coordination of care (as documented) at patient's floor/unit and/or counseling patient: Coding Diagnoses Neurogenic claudication due to lumbar spinal stenosis M48.062 Hypertension I10 Hypertension type: unspecified DM type 2 (diabetes mellitus, type 2) E11.9 Tobacco abuse Z72.0 (2) Hypertension Hypertension type: unspecified Qualified Code(s): I10 - Essential (primary) hypertension
[2023-06-11] MEDS: LANTUS PER UNIT CHARGE SC SCH (08:06)
--- NOTE | 2023-06-11 08:11 | Discharge Summary ---
Date of Service June 11, 2023 Admission HPI Per Admitting Provider This is a 63-year-old male presents with chronic persistent back and leg pain and failing course of nonoperative care is here for surgical invention. Discharge Data Consultations 06/09/23 11:34 Consult Hospitalist Routine Procedures Performed Operation Date: 06/09/23 07:45 Actual Procedures p L3-L4 Decopression and Fusion, Spinal Cord Monitoring(Not Applicable) - Fabio Tesfaye DO s L4-L5 Hardware Removal,(Not Applicable) - Fabio Tesfaye DO Hospital Course (1) Neurogenic claudication due to lumbar spinal stenosis: Patient is a pleasant 63-year-old male with history physical examination and radiographic images consistent with the above-mentioned diagnosis. For this reason is brought to the operating room on 06/09/2023 and undergone removal of hardware at L4-5 and lumbar decompression at L3-4 and continuation of his fusion from L3-L5. This performed by Dr. Tesfaye under general anesthesia. Left the operating room with a ROOSEVELT drain Kill[place] in place and was transferred to the orthopedic floor in stable condition. He was seen by physical therapy postoperative day #1. Throughout his hospital course his calves remained supple and nontender his abdomen was soft and nontender. On postoperative day #2 he was deemed safe for home discharge. His discharge instructions were avoid lifting anything heavier than 5 to 7 pounds. He should not perform any full bending at the waist. He was utilize oxycodone for pain control. He is to be seen in the office approximately 2 weeks out from surgery or sooner if he developed any increased drainage from the incision fevers chills or uncontrolled pain.
== END 2023-06-11 12:12 | disposition home or self-care (01) | DRG 455 ==
LOC: ASU 05:57 → 3E 10:02